=== PATIENT | female | born 1940 | race Caucasian/White ===

== ENCOUNTER → 2017-04-17 | Outpatient (CLI) | payer BC ==
[~2017-04-17] MED LIST: CALC500C50 PO; CEPH500C2 PO; FRS/80 PO; HYDR-4717 PO; KETO200T PO; LACT10SO30 PO; LEVO150T PO; LPT/40 PO; MAGN400T24 PO; MULT-506 PO; MYCO360T PO; NCY50 PO; NRL25 PO; OS CAL PO; POTA10TA30 PO; PRED-301 PO; RBX500 PO; TPRSR50 PO
--- NOTE | 2017-04-17 13:34 | DIAGNOSTIC IMAGING REPORT ---
R PELVIS/UNILATERAL HIP 2-3VIEWS HISTORY: 76 years-old Female PAIN IN R HIP/KNEE, UNSPECIFIED FALL acute right hip and knee pain status post fall COMPARISON: CT abdomen and pelvis 06/18/2009 TECHNIQUE: AP view of the pelvis with 2 views of the right hip FINDINGS: Unchanged sclerotic focus of the right iliac bone, 13 mm suggesting bone island. Additional bone island involves the right acetabulum, 11 mm. Bones appear moderately demineralized. There are moderate degenerative changes about the bilateral hips. No pelvic ring fracture. Severe degenerative changes with levoscoliosis of the lumbar spine. No acute fracture or subluxation. Peripheral vascular disease. Surgical suture material is noted within the central pelvis. IMPRESSION: 1. Moderate changes of the bilateral hips without acute fracture or dislocation. 2. No acute fracture of the pelvis identified. 3. Demineralized appearance of the bones. The above report was generated using voice recognition software. It may contain grammatical, syntax or spelling errors. Electronically signed by: Brian Kearney M.D. 04/17/2017 1:33 PM Dictated Date/Time: 04/17/2017 1:31 PM
--- NOTE | 2017-04-17 13:36 | DIAGNOSTIC IMAGING REPORT ---
RIGHT KNEE 2 VIEWS HISTORY: PAIN IN R HIP/KNEE, UNSPECIFIED FALL COMPARISON: None. FINDINGS: There is no fracture or dislocation. Mild vascular calcification. Small to moderate joint effusion. Mild osteoarthritis tricompartmental osteoarthritis. Subchondral sclerosis at the lateral femoral condyle is likely due to long-standing degenerative change. The bones are osteopenic. IMPRESSION: 1. Small to moderate joint effusion. 2. Mild tricompartmental osteoarthritis. 3. Subchondral sclerosis at the lateral femoral condyle is likely due to long-standing degenerative change. Electronically signed by: Agus Diamond M.D. 04/17/2017 1:35 PM Dictated Date/Time: 04/17/2017 1:31 PM
== END | disposition home or self-care (01) ==
LOC: C.RAD1850 13:08
PROVIDERS: ATTEND Family Medicine
DX: M25.552 Pain in left hip (principal); W19.XXXA Unspecified fall, initial encounter; M25.561 Pain in right knee; M25.551 Pain in right hip; M16.0 Bilateral primary osteoarthritis of hip; M25.451 Effusion, right hip

== ENCOUNTER → 2017-05-22 | Outpatient (CLI) | payer BC ==
[2017-05-22 13:07] LABS: BLOOD UREA NITROGEN 29 mg/dl (7-18); CALCIUM 9.1 mg/dl (8.5-10.1); CARBON DIOXIDE 28 mmol/L (21-32); CREATININE 1.51 mg/dl (0.60-1.20); GLUCOSE 90 mg/dl (70-99); POTASSIUM 3.8 mmol/L (3.5-5.1); SODIUM 139 mmol/L (136-145)
== END | disposition home or self-care (01) ==
LOC: C.LAB1850 10:05
PROVIDERS: ATTEND Internal Medicine Cardiovascular Disease

== ENCOUNTER → 2017-05-25 | Outpatient (CLI) | payer BC | END | disposition home or self-care (01) | LOC: C.LAB1850 14:22 | PROVIDERS: ATTEND Internal Medicine Cardiovascular Disease | DX: Z94.1 Heart transplant status (principal); Z92.25 Personal history of immunosuppression therapy ==

== ENCOUNTER → 2017-05-28 | Outpatient (CLI) | payer BC | END | disposition home or self-care (01) | LOC: C.MAMM 13:23 | PROVIDERS: ATTEND Student in an Organized Health Care Education/Training Program | DX: M85.89 Other specified disorders of bone density and structure, multiple sites (principal); Z79.52 Long term (current) use of systemic steroids; M81.0 Age-related osteoporosis without current pathological fracture ==

== ENCOUNTER → 2017-06-30 | Outpatient (CLI) | payer BC ==
--- NOTE | 2017-07-01 14:32 | DIAGNOSTIC IMAGING REPORT ---
THORACIC SPINE 2 VIEWS, LUMBAR SPINE MIN 4 VIEWS CLINICAL HISTORY: RIGHT KNEE AND BACK PAIN COMPARISON STUDY: Lumbar spine 08/04/2013. FINDINGS: The upper thoracic spine is not included on this study. No fracture or subluxation within the mid to lower thoracic spine or lumbar spine. Mild degenerative disc disease with endplate osteophytes are seen throughout the thoracic spine. There are poststernotomy changes. Moderate dextroscoliosis of the thoracolumbar spine with the apex at the L1 level. The sacrum appears intact. Moderate to severe disc space narrowing at L4-L5 and mild disc space narrowing at L2-L3 and L3-L4. Facet osteoarthritis most pronounced within the right L5-S1 level. IMPRESSION: 1. No fractures or subluxation within the thoracic or lumbar spine. 2. Moderate dextroscoliosis of the thoracolumbar spine. 3. Degenerative changes as described above. Electronically signed by: Agus Diamond M.D. 07/01/2017 2:31 PM Dictated Date/Time: 07/01/2017 2:26 PM
== END | disposition home or self-care (01) ==
LOC: C.RDSM 18:51
PROVIDERS: ATTEND Family Medicine
DX: M25.561 Pain in right knee (principal); M54.16 Radiculopathy, lumbar region; M81.0 Age-related osteoporosis without current pathological fracture; M41.9 Scoliosis, unspecified

== ENCOUNTER 2018-01-14 15:44 | Inpatient (IN) ==
[2018-01-14] MEDS ORDERED: XYLOCAINE 1%/SOD BICARB 20 ML VIAL INFIL ONE (15:58)
[2018-01-14 16:29] LABS: Basophils # (auto) 0.03 K/uL (0-0.2); Basophils % (auto) 0.5 %; Hematocrit (blood only) 37.3 % (37-47); Hemoglobin 11.8 g/dL (12.0-16.0); Immature Granulocytes # (auto) 0.01 K/uL (0.00-0.02); Immature Granulocytes % (auto) 0.2 %; Lymphocytes # (auto) 0.64 K/uL (1.2-3.4); Mean Corpuscular Hgb Conc 31.6 g/dL (32-36); Mean Corpuscular Volume 101.9 fL (80-100); Mean Platelet Volume 10.5 fL (7.4-10.4); Monocytes # (auto) 0.45 K/uL (0.11-0.59); Monocytes % (auto) 7.7 %; Neutrophils # (auto) 4.71 K/uL (1.4-6.5); Neutrophils % (auto) 80.6 %; Platelet Count 179 K/uL (130-400); RDW Coefficient of Variation 13.6 % (11.5-14.5); RDW Standard Deviation 50.7 fL (36.4-46.3); Red Blood Count 3.66 M/uL (4.2-5.4); White Blood Count 5.84 K/uL (4.8-10.8)
[2018-01-14 16:38] LABS: INR 1.1 (0.9-1.1); Partial Thromboplastin Time 25.2 Seconds (21.0-31.0); Prothrombin Time 11.7 Seconds (9.0-12.0)
[2018-01-14 16:38] LABS: iSTAT Hemoglobin 11.9 g/dl (12.0-16.0); iSTAT Ionized Calcium 1.1 mmol/l (1.12-1.32)
[2018-01-14 16:50] LABS: Albumin Level 3.6 gm/dl (3.4-5.0); BUN Creatinine Ratio 21.9 (10-20); Calcium 9.1 mg/dl (8.5-10.1); Creatinine Clr Calc Pharmacy 27.4 ml/min; Est GFR (African American) 34.6; Est GFR (Non-African American) 29.9; Potassium 3.9 mmol/L (3.5-5.1)
[2018-01-14] MEDS ORDERED: IOVERSOL 100ml IV PRN (16:50)
--- NOTE | 2018-01-14 16:54 | CT Scan Report ---
CT head/brain wo con CT DOSE: HISTORY: Trauma trauma eval for bleed TECHNIQUE: Multiaxial CT images of the head were performed without the use of intravenous contrast. A dose lowering technique was utilized adhering to the principles of ALARA. Comparison: None. Findings: The paranasal sinuses and mastoid air cells are clear. The calvarium and skull base are int act. The ventricles and sulci are within normal limits. There is no mass, hematoma, midline shift, or acute infarct. Age-related atrophy and chronic small vessel change. Impression: No acute intracranial abnormality. Age-related atrophy and chronic small vessel change The above report was generated using voice recognition software. It may contain grammatical, syntax or spelling errors. Electronically signed by: Janusz Martínez M.D. 01/14/2018 4:52 PM
--- NOTE | 2018-01-14 16:56 | CT Scan Report ---
CT facial bones wo con CT DOSE: HISTORY: Trauma trauma eval for fx TECHNIQUE: Multiaxial CT images of the maxillofacial region were performed and reformatted in the cor onal plane without the use of contrast. A dose lowering technique was utilized adhering to the princ iples of TAHIRA. COMPARISON: None. FINDINGS: The visualized cervical spine, skull base, pterygoid plates, nasal bones, lamina papyracea, orbital floors, mandible, and zygomatic arches are intact. No fractures. The orbits are unremarkable . IMPRESSION: No fractures within the maxillofacial region. Degenerative change The above report was generated using voice recognition software. It may contain grammatical, syntax or spelling errors. Electronically signed by: Janusz Martínez M.D. 01/14/2018 4:54 PM
--- NOTE | 2018-01-14 16:58 | CT Scan Report ---
CERVICAL SPINE CT CT DOSE: HISTORY: Neck pain. trauma eval for fx TECHNIQUE: Multiaxial CT images of the cervical spine were performed and reformatted in the sagittal and coronal plane without the use of contrast. A dose lowering technique was utilized adhering to th e principles of ALARA. COMPARISON: None. FINDINGS: No fractures. No subluxation. Prevertebral soft tissues and the C1-C2 interval are intact. No pneumothorax. Severe disc space narrowing at C4-C5. IMPRESSION: No fractures within the cervical spine. Electronically signed by: Agus Diamond M.D. 01/14/2018 4:56 PM
--- NOTE | 2018-01-14 16:59 | CT Scan Report ---
CT chest w con CT DOSE: HISTORY: Trauma trauma eval for injury TECHNIQUE: Multiaxial CT images of the chest were performed following the intravenous administration of contrast. A dose lowering technique was utilized adhering to the principles of ALARA. COMPARISON: None. FINDINGS: The lungs are clear. The mediastinal vascular structures are within normal limits. No media stinal or hilar lymphadenopathy. No pleural effusion or pneumothorax. Limited views of the upper abdo men demonstrate a normal liver and spleen. Prominent pulmonary vasculature consistent with pulmonary arterial hypertension. Normal thoracic aorta. IMPRESSION: No significant abnormality identified within the chest. Generalized degenerative and age-related romero ge. Pulmonary arterial hypertension. The above report was generated using voice recognition software. It may contain grammatical, syntax or spelling errors. Electronically signed by: Janusz Martínez M.D. 01/14/2018 4:58 PM
--- NOTE | 2018-01-14 17:02 | CT Scan Report ---
CT abd pelvis IV con only CT DOSE: 1678.15 mGy.cm HISTORY: Trauma trauma eval for injury TECHNIQUE: Multiaxial CT images of the abdomen and pelvis were performed following the use of intrave nous contrast. A dose lowering technique was utilized adhering to the principles of ALARA. COMPARISON STUDY: None. FINDINGS: Lung bases are clear. Liver is uniform. Prior cholecystectomy. Moderate cortical scarring o f both kidneys. Nonobstructive bowel pattern. Several small renal cysts. Ventral hernias procedure described. These are nonobstructive. Bladder is midline. No free fluid with in the pelvic cul-de-sac. IMPRESSION: No significant abnormality identified within the abdomen or pelvis. Age-related and degenerative romero ge. The above report was generated using voice recognition software. It may contain grammatical, syntax or spelling errors. Electronically signed by: Janusz Martínez M.D. 01/14/2018 5:01 PM
[2018-01-14] MEDS ORDERED: ACETAMINOPHEN 325 MG TAB PO STA (17:16)
[2018-01-14 17:20] LABS: Albumin Globulin Ratio 1.1 (0.9-2); Bilirubin,Total 1.8 mg/dl (0.1-1); Globulin 3.2 gm/dl (2.5-4.0); Total Protein 6.8 gm/dl (6.4-8.2); Troponin I 0.094 ng/ml (0-0.045)
--- NOTE | 2018-01-14 17:51 | XRay Report ---
XR tibia fibula LT 2V CLINICAL HISTORY: trauma eval for fx pain. Trauma. COMPARISON: None. DISCUSSION: Moderate generalized soft tissue edema. No acute bony abnormality. Mild degenerative romero ges throughout. Soft tissue vascular calcification. There is no evidence for soft tissue swelling. IMPRESSION: Generalized degenerative change. Moderate soft tissue edema. No acute bony abnormality. The above report was generated using voice recognition software. It may contain grammatical, syntax or spelling errors. Electronically signed by: Janusz Martínez M.D. 01/14/2018 5:50 PM
--- NOTE | 2018-01-14 17:52 | XRay Report ---
XR knee LT 2V routine CLINICAL HISTORY: trauma eval for fx trauma. Pain. COMPARISON: None. DISCUSSION: Moderate generalized degenerative change all major joint compartments. Mild chondrocalcin osis. No significant joint effusion. Soft tissue vascular calcification. There is no evidence for sof t tissue swelling. IMPRESSION: Degenerative change. Chondrocalcinosis. No acute bony abnormality. The above report was generated using voice recognition software. It may contain grammatical, syntax or spelling errors. Electronically signed by: Janusz Martínez M.D. 01/14/2018 5:50 PM
--- NOTE | 2018-01-14 17:53 | XRay Report ---
XR forearm LT 2V CLINICAL HISTORY: trauma eval for fx trauma COMPARISON: None. DISCUSSION: The bones and joint spaces appear intact. There is no evidence of fracture, dislocation o r bony disease. There is no evidence for soft tissue swelling. IMPRESSION: Negative study. The above report was generated using voice recognition software. It may contain grammatical, syntax or spelling errors. Electronically signed by: Janusz Martínez M.D. 01/14/2018 5:51 PM
--- NOTE | 2018-01-14 17:54 | XRay Report ---
XR knee RT 2V routine CLINICAL HISTORY: trauma eval for fx trauma. Pain. COMPARISON: None. DISCUSSION: Degenerative change lateral joint compartment. Mild degenerative change patellofemoral piyush int compartment. Mild soft tissue edema. No evidence for fracture or acute bony abnormality. There is no evidence for soft tissue swelling. IMPRESSION: Degenerative change. No acute bony and amount. The above report was generated using voice recognition software. It may contain grammatical, syntax or spelling errors. Electronically signed by: Janusz Martínez M.D. 01/14/2018 5:52 PM
--- NOTE | 2018-01-14 17:56 | XRay Report ---
XR forearm RT 2V CLINICAL HISTORY: trauma eval for fx trauma. Pain. COMPARISON: None. DISCUSSION: The bones and joint spaces appear intact. There is no evidence of fracture, dislocation o r bony disease. Moderate generalized soft tissue edema. Soft tissue vascular calcifications. IMPRESSION: No acute bony abnormality. Soft tissue edema. The above report was generated using voice recognition software. It may contain grammatical, syntax or spelling errors. Electronically signed by: Janusz Martínez M.D. 01/14/2018 5:54 PM
--- NOTE | 2018-01-14 17:57 | XRay Report ---
XR elbow RT min 3V routine CLINICAL HISTORY: trauma eval for fx trauma. Pain. COMPARISON: None. DISCUSSION: The bones and joint spaces appear intact. There is no evidence of fracture, dislocation o r bony disease. There is no evidence for soft tissue swelling. IMPRESSION: Negative study. Moderate soft tissue edema The above report was generated using voice recognition software. It may contain grammatical, syntax or spelling errors. Electronically signed by: Janusz Martínez M.D. 01/14/2018 5:56 PM
--- NOTE | 2018-01-14 18:01 | Emergency Department Note ---
ED Visit Note I was asked by Dr. Wolf to repair a right upper eyelid laceration and a skin tear on the left forearm for this patient. Verbal consent was obtained. The 6 cm U shaped skin tear was repaired approximately 6 Steri-Strips. Good approximation was obtained. Wound Repair: 1 cm facial laceration Complexity: Basic. Verbal consent was obtained after the risks and benefits were explained, including but not limited to bleeding, scarring, infection, pain, and bone/joint /nerve damage. The skin was prepped with betadine and a sterile field set. The wound was anesthetized with 1.0 ml of 1% buffered lidocaine. With direct pressure the bleeding subsided. Copious irrigation was performed using sterile saline. The wound was explored for foreign bodies and none found. Debridement was not performed. The wound edges were approximated using 6-0 Ethilon with 3 simple interrupted sutures. Hemostasis and excellent approximation was achieved. Antibacterial ointment and a sterile dressing applied. Detailed wound care instructions and signs and symptoms of infection reviewed with the patient. No complications and the patient tolerated the procedure well. Please see Dr. Wolf's note for the remainder patient care. .
--- NOTE | 2018-01-14 18:18 | XRay Report ---
XR pelvis 1-2V routine CLINICAL HISTORY: trauma eval for fx trauma COMPARISON: 04/17/2017 DISCUSSION: The bones and joint spaces appear intact. There is no evidence of fracture, dislocation o r bony disease. There is no evidence for soft tissue swelling. Moderate degenerative change. IMPRESSION: Negative study. Moderate degenerative change. The above report was generated using voice recognition software. It may contain grammatical, syntax or spelling errors. Electronically signed by: Janusz Martínez M.D. 01/14/2018 6:16 PM
[2018-01-14] MEDS ORDERED: NITROGLYCERIN SL 0.4 MG/TAB TAB SL PRN (21:06)
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
[2018-01-14 22:02] LABS: Magnesium 2.3 mg/dl (1.8-2.4); Phosphorus 3.4 mg/dl (2.5-4.9); Troponin I 0.097 ng/ml (0-0.045)
[2018-01-14] MEDS: ACETAMINOPHEN 325 MG TAB PO PRN (22:37)
[2018-01-14] MEDS: MYCOPHENOLATE SODIUM 180 MG TAB PO SCH (22:38)
[2018-01-14] MEDS: DOCUSATE SODIUM 100 MG CAP PO SCH (22:39)
[2018-01-14] MEDS: METOPROLOL SUCC 50MG EXT REL TAB PO SCH (22:39)
[2018-01-14] MEDS: HydrALAZINE TAB 50 MG TAB PO SCH (22:40)
[2018-01-14] MEDS: CHOLECALCIFEROL (VITAMIN D) 400 UNITS TABLET PO SCH (22:40)
[2018-01-14] MEDS: cycloSPORINE (SANDIMMUNE) 25 MG CAP PO SCH (22:41)
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
[2018-01-15] MEDS: ACETAMINOPHEN 325 MG TAB PO PRN ×4 (03:04→20:25)
[2018-01-15] MEDS: LEVOTHYROXINE SODIUM 112 MCG TABLET PO SCH (06:50)
[2018-01-15 07:14] LABS: Basophils # (auto) 0.04 K/uL (0-0.2); Basophils % (auto) 0.7 %; Eosinophils # (auto) 0.07 K/uL (0-0.5); Eosinophils % (auto) 1.1 %; Hematocrit (blood only) 32.6 % (37-47); Hemoglobin 10.2 g/dL (12.0-16.0); Immature Granulocytes # (auto) 0.01 K/uL (0.00-0.02); Immature Granulocytes % (auto) 0.2 %; Lymphocytes # (auto) 1.44 K/uL (1.2-3.4); Lymphocytes % (auto) 23.6 %; Mean Corpuscular Hgb Conc 31.3 g/dL (32-36); Mean Corpuscular Volume 102.2 fL (80-100); Mean Platelet Volume 10.3 fL (7.4-10.4); Monocytes # (auto) 0.98 K/uL (0.11-0.59); Monocytes % (auto) 16.1 %; Neutrophils # (auto) 3.55 K/uL (1.4-6.5); Neutrophils % (auto) 58.3 %; Platelet Count 168 K/uL (130-400); RDW Coefficient of Variation 13.5 % (11.5-14.5); RDW Standard Deviation 50.8 fL (36.4-46.3); Red Blood Count 3.19 M/uL (4.2-5.4); White Blood Count 6.09 K/uL (4.8-10.8)
[2018-01-15 07:47] LABS: BUN Creatinine Ratio 22.2 (10-20); Calcium 8.6 mg/dl (8.5-10.1); Creatinine Clr Calc Pharmacy 24.6 ml/min; Est GFR (African American) 33.4; Est GFR (Non-African American) 28.8; Potassium 3.5 mmol/L (3.5-5.1)
[2018-01-15 07:53] LABS: Troponin I 0.103 ng/ml (0-0.045)
[2018-01-15] MEDS: METOPROLOL SUCC 50MG EXT REL TAB PO SCH ×2 (08:20→20:23)
[2018-01-15] MEDS: predniSONE 5 MG TAB PO SCH (08:20)
[2018-01-15] MEDS: FUROSEMIDE 40 MG TAB PO SCH (08:20)
[2018-01-15] MEDS: DOCUSATE SODIUM 100 MG CAP PO SCH ×2 (08:20→20:21)
[2018-01-15] MEDS: CHOLECALCIFEROL (VITAMIN D) 400 UNITS TABLET PO SCH ×2 (08:20→20:23)
[2018-01-15] MEDS: ROSUVASTATIN CALCIUM 5 MG TAB PO SCH (08:20)
[2018-01-15] MEDS: HydrALAZINE TAB 50 MG TAB PO SCH ×3 (08:20→20:20)
[2018-01-15] MEDS: cycloSPORINE (SANDIMMUNE) 25 MG CAP PO SCH ×2 (08:21→20:22)
[2018-01-15] MEDS: MYCOPHENOLATE SODIUM 180 MG TAB PO SCH ×2 (08:21→20:21)
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
[2018-01-15 15:06] LABS: Hematocrit (blood only) 32.2 % (37-47); Hemoglobin 10.2 g/dL (12.0-16.0)
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
[2018-01-16] MEDS: LEVOTHYROXINE SODIUM 112 MCG TABLET PO SCH (06:03)
[2018-01-16 06:18] LABS: Basophils # (auto) 0.02 K/uL (0-0.2); Basophils % (auto) 0.3 %; Eosinophils % (auto) 1.4 %; Hematocrit (blood only) 29.4 % (37-47); Hemoglobin 9.5 g/dL (12.0-16.0); Immature Granulocytes # (auto) 0.01 K/uL (0.00-0.02); Immature Granulocytes % (auto) 0.1 %; Lymphocytes % (auto) 19.6 %; Mean Corpuscular Hgb Conc 32.3 g/dL (32-36); Mean Corpuscular Volume 100.7 fL (80-100); Mean Platelet Volume 10.5 fL (7.4-10.4); Monocytes # (auto) 1.06 K/uL (0.11-0.59); Monocytes % (auto) 14.8 %; Neutrophils # (auto) 4.57 K/uL (1.4-6.5); Neutrophils % (auto) 63.8 %; Platelet Count 162 K/uL (130-400); RDW Coefficient of Variation 13.7 % (11.5-14.5); Red Blood Count 2.92 M/uL (4.2-5.4); White Blood Count 7.16 K/uL (4.8-10.8)
[2018-01-16 06:51] LABS: Albumin Level 2.8 gm/dl (3.4-5.0); Bilirubin,Total 1.3 mg/dl (0.1-1); Calcium 8.4 mg/dl (8.5-10.1); Creatinine Clr Calc Pharmacy 23.1 ml/min; Est GFR (African American) 30.9; Est GFR (Non-African American) 26.7; Globulin 2.7 gm/dl (2.5-4.0); Potassium 3.5 mmol/L (3.5-5.1); Total Protein 5.5 gm/dl (6.4-8.2)
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
[2018-01-16] MEDS: ACETAMINOPHEN 325 MG TAB PO PRN ×3 (07:56→21:14)
[2018-01-16] MEDS: CHOLECALCIFEROL (VITAMIN D) 400 UNITS TABLET PO SCH ×2 (07:57→20:13)
[2018-01-16] MEDS: HydrALAZINE TAB 50 MG TAB PO SCH ×3 (07:57→20:12)
[2018-01-16] MEDS: METOPROLOL SUCC 50MG EXT REL TAB PO SCH ×2 (07:57→20:13)
[2018-01-16] MEDS: predniSONE 5 MG TAB PO SCH (07:57)
[2018-01-16] MEDS: DOCUSATE SODIUM 100 MG CAP PO SCH ×2 (07:58→20:12)
[2018-01-16] MEDS: FUROSEMIDE 40 MG TAB PO SCH (07:58)
[2018-01-16] MEDS: cycloSPORINE (SANDIMMUNE) 25 MG CAP PO SCH ×2 (07:58→20:13)
[2018-01-16] MEDS: ROSUVASTATIN CALCIUM 5 MG TAB PO SCH (07:58)
[2018-01-16] MEDS: MYCOPHENOLATE SODIUM 180 MG TAB PO SCH ×2 (07:58→20:13)
[2018-01-17] MEDS: LEVOTHYROXINE SODIUM 112 MCG TABLET PO SCH (05:06)
[2018-01-17 06:42] LABS: Basophils # (auto) 0.01 K/uL (0-0.2); Basophils % (auto) 0.2 %; Eosinophils % (auto) 1.6 %; Hematocrit (blood only) 29.3 % (37-47); Hemoglobin 9.2 g/dL (12.0-16.0); Immature Granulocytes # (auto) 0.01 K/uL (0.00-0.02); Immature Granulocytes % (auto) 0.2 %; Lymphocytes # (auto) 1.49 K/uL (1.2-3.4); Lymphocytes % (auto) 23.1 %; Mean Corpuscular Hgb Conc 31.4 g/dL (32-36); Mean Platelet Volume 10.6 fL (7.4-10.4); Monocytes # (auto) 0.89 K/uL (0.11-0.59); Monocytes % (auto) 13.8 %; Neutrophils # (auto) 3.95 K/uL (1.4-6.5); Neutrophils % (auto) 61.1 %; Platelet Count 167 K/uL (130-400); RDW Coefficient of Variation 13.9 % (11.5-14.5); RDW Standard Deviation 51.2 fL (36.4-46.3); White Blood Count 6.45 K/uL (4.8-10.8)
[2018-01-17 07:18] LABS: Albumin Level 2.8 gm/dl (3.4-5.0); BUN Creatinine Ratio 21.7 (10-20); Calcium 8.3 mg/dl (8.5-10.1); Creatinine Clr Calc Pharmacy 20.9 ml/min; Est GFR (Non-African American) 21.6; Potassium 3.3 mmol/L (3.5-5.1)
[2018-01-17 07:20] LABS: Bilirubin,Total 1.2 mg/dl (0.1-1); Globulin 2.7 gm/dl (2.5-4.0); Total Protein 5.5 gm/dl (6.4-8.2)
[2018-01-17] MEDS: ACETAMINOPHEN 325 MG TAB PO PRN ×4 (07:59→23:19)
[2018-01-17] MEDS: cycloSPORINE (SANDIMMUNE) 25 MG CAP PO SCH ×2 (08:00→20:59)
[2018-01-17] MEDS: ROSUVASTATIN CALCIUM 5 MG TAB PO SCH (08:00)
[2018-01-17] MEDS: MYCOPHENOLATE SODIUM 180 MG TAB PO SCH ×2 (08:00→20:59)
[2018-01-17] MEDS: predniSONE 5 MG TAB PO SCH (08:00)
[2018-01-17] MEDS: DOCUSATE SODIUM 100 MG CAP PO SCH ×2 (08:00→20:58)
[2018-01-17] MEDS: FUROSEMIDE 40 MG TAB PO SCH (08:00)
[2018-01-17] MEDS: METOPROLOL SUCC 50MG EXT REL TAB PO SCH ×2 (08:00→20:58)
[2018-01-17] MEDS: CHOLECALCIFEROL (VITAMIN D) 400 UNITS TABLET PO SCH ×2 (08:00→20:58)
[2018-01-17] MEDS: HydrALAZINE TAB 50 MG TAB PO SCH ×3 (08:01→20:59)
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
[2018-01-17] MEDS ORDERED: POTASSIUM CHLORIDE 20 MEQ TABCR PO ONE (11:00)
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
[2018-01-17] MEDS ORDERED: TRAMADOL HCL 50 MG TABLET PO STA (21:08)
[2018-01-18] MEDS: LEVOTHYROXINE SODIUM 112 MCG TABLET PO SCH (06:10)
[2018-01-18 07:25] LABS: Basophils # (auto) 0.02 K/uL (0-0.2); Basophils % (auto) 0.3 %; Eosinophils # (auto) 0.09 K/uL (0-0.5); Eosinophils % (auto) 1.5 %; Hematocrit (blood only) 27.6 % (37-47); Hemoglobin 8.7 g/dL (12.0-16.0); Immature Granulocytes # (auto) 0.01 K/uL (0.00-0.02); Immature Granulocytes % (auto) 0.2 %; Lymphocytes # (auto) 1.25 K/uL (1.2-3.4); Lymphocytes % (auto) 20.3 %; Mean Corpuscular Hgb Conc 31.5 g/dL (32-36); Mean Corpuscular Volume 101.1 fL (80-100); Mean Platelet Volume 10.7 fL (7.4-10.4); Monocytes # (auto) 0.96 K/uL (0.11-0.59); Monocytes % (auto) 15.6 %; Neutrophils # (auto) 3.83 K/uL (1.4-6.5); Neutrophils % (auto) 62.1 %; Platelet Count 162 K/uL (130-400); RDW Coefficient of Variation 14.1 % (11.5-14.5); Red Blood Count 2.73 M/uL (4.2-5.4); White Blood Count 6.16 K/uL (4.8-10.8)
[2018-01-18 07:56] LABS: RBC Morphology Unremarkable
[2018-01-18 08:06] LABS: Albumin Level 2.7 gm/dl (3.4-5.0); BUN Creatinine Ratio 22.7 (10-20); Calcium 8.3 mg/dl (8.5-10.1); Creatinine Clr Calc Pharmacy 20.6 ml/min; Est GFR (African American) 24.3; Potassium 3.6 mmol/L (3.5-5.1)
[2018-01-18 08:08] LABS: Albumin Globulin Ratio 1.1 (0.9-2); Bilirubin,Total 1.3 mg/dl (0.1-1); Globulin 2.6 gm/dl (2.5-4.0); Total Protein 5.3 gm/dl (6.4-8.2)
[2018-01-18] MEDS: FUROSEMIDE 40 MG TAB PO SCH (08:09)
[2018-01-18] MEDS: CHOLECALCIFEROL (VITAMIN D) 400 UNITS TABLET PO SCH ×2 (08:09→20:12)
[2018-01-18] MEDS: METOPROLOL SUCC 50MG EXT REL TAB PO SCH ×2 (08:09→20:12)
[2018-01-18] MEDS: predniSONE 5 MG TAB PO SCH (08:09)
[2018-01-18] MEDS: DOCUSATE SODIUM 100 MG CAP PO SCH ×2 (08:10→20:12)
[2018-01-18] MEDS: MYCOPHENOLATE SODIUM 180 MG TAB PO SCH ×2 (08:10→20:11)
[2018-01-18] MEDS: cycloSPORINE (SANDIMMUNE) 25 MG CAP PO SCH ×2 (08:11→21:47)
[2018-01-18] MEDS: ROSUVASTATIN CALCIUM 5 MG TAB PO SCH (08:11)
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
[2018-01-18] MEDS: HydrALAZINE TAB 50 MG TAB PO SCH ×3 (09:55→20:11)
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
[2018-01-18] MEDS ORDERED: SODIUM CHLORIDE 0.9% 1000ML 500 ML IV ONE (11:24)
[2018-01-18] MEDS: ACETAMINOPHEN 325 MG TAB PO PRN ×4 (11:35→23:41)
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
[2018-01-19] MEDS: LEVOTHYROXINE SODIUM 112 MCG TABLET PO SCH (05:21)
[2018-01-19] MEDS: ACETAMINOPHEN 325 MG TAB PO PRN ×3 (05:21→20:40)
[2018-01-19] MEDS ORDERED: TRAMADOL HCL 50 MG TABLET PO STA ×2 (05:38→09:13)
[2018-01-19 05:54] LABS: Basophils # (auto) 0.03 K/uL (0-0.2); Basophils % (auto) 0.5 %; Eosinophils # (auto) 0.11 K/uL (0-0.5); Eosinophils % (auto) 1.7 %; Hematocrit (blood only) 28.7 % (37-47); Immature Granulocytes # (auto) 0.01 K/uL (0.00-0.02); Immature Granulocytes % (auto) 0.2 %; Lymphocytes # (auto) 1.42 K/uL (1.2-3.4); Lymphocytes % (auto) 22.4 %; Mean Corpuscular Hgb Conc 31.4 g/dL (32-36); Mean Corpuscular Volume 101.1 fL (80-100); Mean Platelet Volume 10.6 fL (7.4-10.4); Monocytes # (auto) 0.91 K/uL (0.11-0.59); Monocytes % (auto) 14.4 %; Neutrophils # (auto) 3.86 K/uL (1.4-6.5); Neutrophils % (auto) 60.8 %; Platelet Count 189 K/uL (130-400); RDW Coefficient of Variation 13.9 % (11.5-14.5); RDW Standard Deviation 51.2 fL (36.4-46.3); Red Blood Count 2.84 M/uL (4.2-5.4); White Blood Count 6.34 K/uL (4.8-10.8)
[2018-01-19 06:26] LABS: Albumin Level 2.8 gm/dl (3.4-5.0); BUN Creatinine Ratio 24.5 (10-20); Calcium 8.1 mg/dl (8.5-10.1); Creatinine Clr Calc Pharmacy 22.4 ml/min; Est GFR (African American) 26.8; Est GFR (Non-African American) 23.2; Potassium 3.5 mmol/L (3.5-5.1)
[2018-01-19 06:28] LABS: Bilirubin,Total 1.2 mg/dl (0.1-1); Globulin 2.9 gm/dl (2.5-4.0); Total Protein 5.7 gm/dl (6.4-8.2)
[2018-01-19] MEDS: METOPROLOL SUCC 50MG EXT REL TAB PO SCH ×2 (08:04→20:48)
[2018-01-19] MEDS: CHOLECALCIFEROL (VITAMIN D) 400 UNITS TABLET PO SCH ×2 (08:10→20:48)
[2018-01-19] MEDS: ROSUVASTATIN CALCIUM 5 MG TAB PO SCH (08:10)
[2018-01-19] MEDS: MYCOPHENOLATE SODIUM 180 MG TAB PO SCH ×2 (08:10→20:48)
[2018-01-19] MEDS: predniSONE 5 MG TAB PO SCH (08:10)
[2018-01-19] MEDS: HydrALAZINE TAB 50 MG TAB PO SCH ×3 (08:10→20:47)
[2018-01-19] MEDS: DOCUSATE SODIUM 100 MG CAP PO SCH ×2 (08:10→20:50)
[2018-01-19] MEDS: FUROSEMIDE 40 MG TAB PO SCH (08:10)
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
[2018-01-19] MEDS ORDERED: TRAMADOL HCL 50 MG TABLET ONE (09:36)
[2018-01-19] MEDS: cycloSPORINE (SANDIMMUNE) 25 MG CAP PO SCH ×2 (09:38→20:48)
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
[2018-01-20] MEDS: ACETAMINOPHEN 325 MG TAB PO PRN ×3 (00:48→20:14)
[2018-01-20] MEDS ORDERED: TRAMADOL HCL 50 MG TABLET PO STA (01:33)
[2018-01-20 05:59] LABS: Basophils # (auto) 0.02 K/uL (0-0.2); Basophils % (auto) 0.3 %; Eosinophils % (auto) 1.7 %; Hematocrit (blood only) 28.1 % (37-47); Hemoglobin 8.9 g/dL (12.0-16.0); Immature Granulocytes # (auto) 0.02 K/uL (0.00-0.02); Immature Granulocytes % (auto) 0.3 %; Lymphocytes # (auto) 1.21 K/uL (1.2-3.4); Lymphocytes % (auto) 20.8 %; Mean Corpuscular Hgb Conc 31.7 g/dL (32-36); Mean Corpuscular Volume 101.8 fL (80-100); Mean Platelet Volume 10.2 fL (7.4-10.4); Monocytes % (auto) 13.7 %; Neutrophils # (auto) 3.67 K/uL (1.4-6.5); Neutrophils % (auto) 63.2 %; Platelet Count 190 K/uL (130-400); RDW Coefficient of Variation 14.1 % (11.5-14.5); RDW Standard Deviation 51.3 fL (36.4-46.3); Red Blood Count 2.76 M/uL (4.2-5.4); White Blood Count 5.82 K/uL (4.8-10.8)
[2018-01-20] MEDS: LEVOTHYROXINE SODIUM 112 MCG TABLET PO SCH (06:10)
[2018-01-20 06:28] LABS: Albumin Level 2.7 gm/dl (3.4-5.0); BUN Creatinine Ratio 25.4 (10-20); Calcium 8.4 mg/dl (8.5-10.1); Creatinine Clr Calc Pharmacy 25.3 ml/min; Est GFR (African American) 31.1; Est GFR (Non-African American) 26.8
[2018-01-20 06:31] LABS: Albumin Globulin Ratio 0.9 (0.9-2); Bilirubin,Total 1.2 mg/dl (0.1-1); Globulin 2.9 gm/dl (2.5-4.0); RBC Morphology Unremarkable; Total Protein 5.6 gm/dl (6.4-8.2)
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
[2018-01-20] MEDS: METOPROLOL SUCC 50MG EXT REL TAB PO SCH ×2 (08:14→20:15)
[2018-01-20] MEDS: CHOLECALCIFEROL (VITAMIN D) 400 UNITS TABLET PO SCH ×2 (08:14→20:15)
[2018-01-20] MEDS: predniSONE 5 MG TAB PO SCH (08:14)
[2018-01-20] MEDS: ROSUVASTATIN CALCIUM 5 MG TAB PO SCH (08:14)
[2018-01-20] MEDS: HydrALAZINE TAB 50 MG TAB PO SCH ×3 (08:14→20:14)
[2018-01-20] MEDS: FUROSEMIDE 40 MG TAB PO SCH (08:14)
[2018-01-20] MEDS: cycloSPORINE (SANDIMMUNE) 25 MG CAP PO SCH ×2 (08:15→20:15)
[2018-01-20] MEDS: MYCOPHENOLATE SODIUM 180 MG TAB PO SCH ×2 (08:15→20:14)
[2018-01-20] MEDS: TRAMADOL HCL 50 MG TABLET PO PRN ×2 (08:38→12:38)
[2018-01-20] MEDS: DOCUSATE SODIUM 100 MG CAP PO SCH ×2 (09:52→20:15)
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
[2018-01-21] MEDS: ACETAMINOPHEN 325 MG TAB PO PRN (06:24)
[2018-01-21] MEDS: LEVOTHYROXINE SODIUM 112 MCG TABLET PO SCH (06:24)
[2018-01-21 06:44] LABS: BUN Creatinine Ratio 28.2 (10-20); Calcium 8.2 mg/dl (8.5-10.1); Creatinine Clr Calc Pharmacy 27.5 ml/min; Est GFR (African American) 34.4; Est GFR (Non-African American) 29.7; Potassium 4.1 mmol/L (3.5-5.1)
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
[2018-01-21] MEDS: DOCUSATE SODIUM 100 MG CAP PO SCH (08:16)
[2018-01-21] MEDS: MYCOPHENOLATE SODIUM 180 MG TAB PO SCH (08:16)
[2018-01-21] MEDS: cycloSPORINE (SANDIMMUNE) 25 MG CAP PO SCH (08:16)
[2018-01-21] MEDS: METOPROLOL SUCC 50MG EXT REL TAB PO SCH (08:17)
[2018-01-21] MEDS: CHOLECALCIFEROL (VITAMIN D) 400 UNITS TABLET PO SCH (08:17)
[2018-01-21] MEDS: ROSUVASTATIN CALCIUM 5 MG TAB PO SCH (08:17)
[2018-01-21] MEDS: FUROSEMIDE 40 MG TAB PO SCH (08:18)
[2018-01-21] MEDS: predniSONE 5 MG TAB PO SCH (08:18)
[2018-01-21] MEDS: HydrALAZINE TAB 50 MG TAB PO SCH (08:18)
== END 2018-01-21 13:50 | disposition home health service (06) | DRG 605 ==
LOC: ED 15:44 → SUATTDRO 20:01 → 2S 20:01 → 2N 01-18 12:38

== ENCOUNTER 2018-02-21 09:30 | Observation (INO) ==
[2018-02-21 09:48] LABS: Basophils # (auto) 0.02 K/uL (0-0.2); Basophils % (auto) 0.3 %; Eosinophils # (auto) 0.06 K/uL (0-0.5); Eosinophils % (auto) 0.9 %; Hematocrit (blood only) 35.9 % (37-47); Hemoglobin 11.4 g/dL (12.0-16.0); Immature Granulocytes # (auto) 0.01 K/uL (0.00-0.02); Immature Granulocytes % (auto) 0.2 %; Lymphocytes # (auto) 1.56 K/uL (1.2-3.4); Mean Corpuscular Hgb Conc 31.8 g/dL (32-36); Mean Corpuscular Volume 103.8 fL (80-100); Mean Platelet Volume 10.6 fL (7.4-10.4); Monocytes # (auto) 0.81 K/uL (0.11-0.59); Monocytes % (auto) 12.4 %; Neutrophils # (auto) 4.05 K/uL (1.4-6.5); Neutrophils % (auto) 62.2 %; Platelet Count 219 K/uL (130-400); RDW Coefficient of Variation 14.5 % (11.5-14.5); RDW Standard Deviation 54.9 fL (36.4-46.3); Red Blood Count 3.46 M/uL (4.2-5.4); White Blood Count 6.51 K/uL (4.8-10.8)
--- NOTE | 2018-02-21 09:58 | XRay Report ---
XR chest 1V portable CLINICAL HISTORY: Chest pain. COMPARISON STUDY: Chest CT January 14, 2018. FINDINGS: Incidental note is made of mediastinal wires and a right shoulder arthroplasty. There is no pneumothorax. Note is made of pulmonary vascular congestion without overt pulmonary edema. Blunting of the left costophrenic angle is unchanged. There is no consolidation. Cardiomegaly is unchanged. No ndisplaced fractures of the lateral right sixth and seventh ribs are noted. IMPRESSION: 1. Cardiomegaly with pulmonary vascular congestion. No overt pulmonary edema. 2. No consolidation to suggest pneumonia. 3. Nondisplaced right sixth and seventh rib fractures which are likely subacute to chronic. Electronically signed by: Guru Quinn M.D. 02/21/2018 9:56 AM
[2018-02-21 10:04] LABS: Albumin Level 3.4 gm/dl (3.4-5.0); BUN Creatinine Ratio 24.5 (10-20); Calcium 8.7 mg/dl (8.5-10.1); Creatinine Clr Calc Pharmacy 26.9 ml/min; Est GFR (African American) 33.6; Magnesium 2.1 mg/dl (1.8-2.4); Potassium 3.1 mmol/L (3.5-5.1)
[2018-02-21 10:14] LABS: Albumin Globulin Ratio 1.1 (0.9-2); Bilirubin,Total 1.4 mg/dl (0.2-1); Globulin 3.2 gm/dl (2.5-4.0); Phosphorus 3.2 mg/dl (2.5-4.9); Total Protein 6.6 gm/dl (6.4-8.2); Troponin I 0.097 ng/ml (0-0.045)
[2018-02-21] MEDS ORDERED: POTASSIUM CHLORIDE 20 MEQ TABCR PO STA (10:20)
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
[2018-02-21 11:08] LABS: INR 1.2 (0.9-1.1); Prothrombin Time 12.2 Seconds (9.0-12.0)
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
[2018-02-21] MEDS ORDERED: ONDANSETRON INJ 2 MG/ML 2 ML VIAL IV PRN (12:01)
[2018-02-21] MEDS ORDERED: NITROGLYCERIN SL 0.4 MG/TAB TAB SL PRN (12:01)
[2018-02-21] MEDS ORDERED: POTASSIUM CHLORIDE 10 MEQ / 100ML WTR IV STA (12:01)
[2018-02-21] MEDS ORDERED: MAGNESIUM OXIDE 400 MG TAB PO PRN (12:01)
[2018-02-21] MEDS: POTASSIUM CHLORIDE / WTR 10 MEQ/100 ML PLCT IV SCH ×3 (12:59→16:14)
[2018-02-21] MEDS: POTASSIUM CHLORIDE 20 MEQ TABCR PO SCH (16:14)
[2018-02-21] MEDS: cycloSPORINE 25 MG CAP PO SCH (20:30)
[2018-02-21] MEDS: APIXABAN 5 MG TABLET PO SCH (20:30)
[2018-02-21] MEDS: HydrALAZINE TAB 50 MG TAB PO SCH (20:31)
[2018-02-21] MEDS: MYCOPHENOLATE SODIUM 180 MG TAB PO SCH (20:32)
[2018-02-21] MEDS: METOPROLOL SUCC 50MG EXT REL TAB PO SCH (20:33)
[2018-02-21] MEDS: ROSUVASTATIN CALCIUM 5 MG TAB PO SCH (20:33)
[2018-02-21] MEDS: CHOLECALCIFEROL (VITAMIN D) 400 UNITS TABLET PO SCH (20:34)
[2018-02-21] MEDS: ACETAMINOPHEN 325 MG TAB PO PRN (22:06)
[2018-02-22 04:39] LABS: Hematocrit (blood only) 34.6 % (37-47); Hemoglobin 10.9 g/dL (12.0-16.0); Mean Corpuscular Hgb Conc 31.5 g/dL (32-36); Mean Corpuscular Volume 104.2 fL (80-100); Mean Platelet Volume 10.4 fL (7.4-10.4); Platelet Count 189 K/uL (130-400); RDW Coefficient of Variation 14.4 % (11.5-14.5); RDW Standard Deviation 54.5 fL (36.4-46.3); Red Blood Count 3.32 M/uL (4.2-5.4); White Blood Count 5.71 K/uL (4.8-10.8)
[2018-02-22 05:24] LABS: Calcium 8.4 mg/dl (8.5-10.1); Creatinine Clr Calc Pharmacy 31.3 ml/min; Est GFR (African American) 40.3; Est GFR (Non-African American) 34.7; Potassium 4.2 mmol/L (3.5-5.1); Troponin I 0.109 ng/ml (0-0.045)
[2018-02-22] MEDS: LEVOTHYROXINE SODIUM 112 MCG TABLET PO SCH (07:49)
[2018-02-22] MEDS: POTASSIUM CHLORIDE 20 MEQ TABCR PO SCH ×2 (09:17→18:23)
[2018-02-22] MEDS: cycloSPORINE 25 MG CAP PO SCH ×2 (09:18→20:56)
[2018-02-22] MEDS: ALLOPURINOL 100 MG TAB PO SCH (09:19)
[2018-02-22] MEDS: CHOLECALCIFEROL (VITAMIN D) 400 UNITS TABLET PO SCH ×2 (09:19→20:56)
[2018-02-22] MEDS: ASPIRIN 81 MG ECTAB PO SCH (09:19)
[2018-02-22] MEDS: ASCORBIC ACID 500 MG TAB PO SCH (09:19)
[2018-02-22] MEDS: CALCIUM POLYCARBOPHIL 1 TAB PO SCH (09:20)
[2018-02-22] MEDS: CALCIUM CARBONATE 500 MG CHEWABLE TAB PO SCH (09:20)
[2018-02-22] MEDS: MULTIVITAMIN TAB PO SCH (09:20)
[2018-02-22] MEDS: APIXABAN 5 MG TABLET PO SCH ×2 (09:21→20:57)
[2018-02-22] MEDS: MYCOPHENOLATE SODIUM 180 MG TAB PO SCH ×2 (09:21→20:57)
[2018-02-22] MEDS: predniSONE 5 MG TAB PO SCH (09:22)
--- NOTE | 2018-02-22 09:59 | Cardiology Progress Note ---
Date of Service February 22, 2018 Assessment & Plan (1) Elevated troponin: The patient has a chronically elevated troponin I level. Doubt this represents myocardial ischemia no further workup indicated at this time. (2) Atypical chest pain: The patient experienced significant right shoulder pain at the time of her presentation. Could consider CT scan of the chest to rule out a pulmonary embolism realizing her recently diagnosed right lower extremity DVT. (3) DVT (deep venous thrombosis): Right lower extremity DVT identified last week. Now back on long-term anticoagulation. (4) Status post heart transplant: Her procedure was performed at [facility] back in 1999. Subjective Mrs. Carmen is resting comfortably in bed without complaints of chest pain or dyspnea. Physical Exam 2 Vital Signs (Past 24 Hours): Last Vital Signs Temp 36.6 C 02/22/18 07:22 Pulse 88 02/22/18 07:22 Resp 16 02/22/18 07:22 BP 121/73 02/22/18 07:22 Pulse Ox 97 02/22/18 07:22 Physical Exam: In general is well-developed well-nourished white female no acute distress. HEENT exam notes an ecchymosis across the right face. Neck is supple with full carotid upstrokes. No carotid bruits. Jugular venous pressure is flat at 90. No thyromegaly. Cardiovascular exam reveals a regular rhythm with distant heart sounds. No obvious murmurs. Lungs are clear without rales, rhonchi or wheezes. Abdomen is soft without bruits extremities reveal intact radial artery pulses bilaterally. Right upper extremity is edematous and ecchymotic. Trace pretibial edema. Results & Data Laboratory Results CBC notes a hemoglobin of 10.9, hematocrit 34.6, white count 5.7, platelet count [id number]. Electrolytes show sodium 143, potassium 4.2, chloride 110, bicarb 29, BUN 36, creatinine 1.43, glucose 93. Initial troponin was 0.0 9 7 with fall values of 0.1 and 0.109. Diagnostic Findings lace roller notes sinus rhythm.
[2018-02-22] MEDS: METOPROLOL SUCC 50MG EXT REL TAB PO SCH ×2 (11:27→20:55)
[2018-02-22] MEDS: HydrALAZINE TAB 50 MG TAB PO SCH ×2 (11:27→20:58)
--- NOTE | 2018-02-22 14:46 | Nuclear Medicine Report ---
NM pul vent and perfuse CLINICAL HISTORY: 77 years-old Female presenting with shoulder pain, history of heart transplant, r/o PE. TECHNIQUE: Immediately following the inhalation of 33 mCi of technetium 99 M DTPA for the ventilation scan and the intravenous administration of 5 mCi of technetium 99 M MAA for the perfusion scan, ante rior, oblique, lateral, and posterior views of the chest were obtained. Modified PIOPED II criteria w ere utilized for assessment. COMPARISON: Chest x-ray performed the previous day. FINDINGS: 2 large mismatch defects in the anterior and apical segments of the left upper lobe. Ventilation to t hese regions is preserved. There is heterogeneity of both ventilation and perfusion in the left perih ilar region. The remainder of the lung parenchyma demonstrates normal perfusion. Slight heterogeneity of ventilation likely due to central airway deposition. Incidental note made of ingested radiotracer in the gastric lumen. Reference: Modified PIOPED II criteria Normal: No perfusion defects. Very low likelihood ratio: Nonsegmental, perfusion defect < chest x-ray lesion, 1-3 small segmental d efects, solitary triple matched defect (< or = 1 segment) in mid or upper lung, stripe sign, solitary large pleural effusion, > or = to 2 matched defects with regionally normal chest x-ray. High likelihood ratio: > or = 2 large mismatch segmental defects. Nondiagnostic: All other findings. IMPRESSION: High likelihood for pulmonary embolus. The report will be called/faxed according to standard departmental protocol. Electronically signed by: Iain Davis M.D. 02/22/2018 2:44 PM
--- NOTE | 2018-02-22 15:22 | Hospitalist Progress Note ---
Date of Service February 22, 2018 Assessment & Plan (1) Heart transplanted: (2) Hypothyroidism: (3) Chronic steroid use: (4) Hypertension: (5) Elevated troponin: (6) DVT prophylaxis: (7) Abnormal urinalysis: (8) Hypokalemia: (9) CKD (chronic kidney disease) stage 3, GFR 30-59 ml/min: 77-year-old white female admitted on February 21, 2017 because of shoulder pain, possible chest pain equivocal with history of heart transplanted with chronic elevated troponin, Cardiology saw the patient, possible no cardiac conditions, does not need further cardiac evaluation, however need to check CT or lung scan to rule out PE , lung scan was done, shows high possibility of PE, recently dx of DVT which is nearly occlusive deep venous thrombosis identified within 1 of 2 paired distal superficial femoral veins. Patient has been on Eliquis, will continue, will increase activity PTOT, not discharged home 10-day Mild elevated blood pressure at 152/92, will watch, Hypothyroidism, chronic steroid use, continue levothyroxine 112 mcg, continue prednisone Accelerated hypertension: Continue metoprolol hydralazine and Lasix Hypokalemia upon admission resolved CKD stage 3, in Baseline, Continue current care, increase activity, PT OT, possible discharge home tomorrow Subjective No more shoulder pain, however not out of bed to the chair yet, denies hemoptysis denies chest pain, Review of Systems Constitutional: Positive weakness, or fatigue Respiratory: no cough, sputum, wheezing, Cardiac: No chest pain, No orthopnea, No PND, Abdomen: No pain, No nausea, No vomiting, No diarrhea, Musculoskeletal: No joint pain, No muscle pain, No swelling : No dysuria, No urinary frequency, No incontinence, No hematuria Neurologic: No paralysis, No weakness, No numbness/tingling, Psychiatric: No depression symptoms, No anhedonism, No anxiety, Heme: No abnormal bleeding/bruising, No clotting problems, Skin: No rash, No itch, No new/changing skin lesions, Physical Exam 2 Vital Signs (Past 24 Hours): Last Vital Signs Temp 36.6 C 02/22/18 11:45 Pulse 88 02/22/18 11:45 Resp 20 02/22/18 11:45 BP 150/92 H 02/22/18 11:45 Pulse Ox 93 02/22/18 11:45 Physical Exam: General Appearance: WD/WN, no apparent distress, Eyes: normal inspection, PERRL, EOMI, sclerae normal ENT: normal ENT inspection, hearing grossly normal, pharynx normal Neck: supple, no adenopathy, thyroid normal, no JVD, Respiratory/Chest: chest non-tender,no respiratory distress, no accessory muscle use, no rales, wheezing Cardiovascular: Mild decreased breathing sound, regular rate, rhythm, no JVD, no murmur Abdomen: normal bowel sounds, non tender, soft, no organomegaly, Extremities: normal range of motion, non-tender, normal inspection, no pedal edema, no calf tenderness, normal capillary refill , pelvis stable, joint has no limited range of motion, capillary refill is normal, no cyanosis clubbing Neurologic/Psychiatric: second butler II-XII nml as tested, no motor/sensory deficits, alert, normal mood/affect, oriented x 3 Skin: normal color, warm/dry, no rash Lymphatic: no adenopathy Results & Data Laboratory Results Laboratory Results - last 24 hr 02/21/18 02/22/18 02/22/18 16:42 04:19 04:19 WBC 5.71 RBC 3.32 L Hgb 10.9 L Hct 34.6 L MCV 104.2 H MCH 32.8 MCHC 31.5 L RDW Std Deviation 54.5 H RDW Coeff of Jeniffer 14.4 Plt Count 189 MPV 10.4 Sodium 143 Potassium 4.2 D Chloride 110 H Carbon Dioxide 29 Anion Gap 4.0 BUN 36 H Creatinine 1.43 H Est Cr Clr Drug Dosing 31.3 Est GFR ( Amer) 40.3 Est GFR (Non-Af Amer) 34.7 BUN/Creatinine Ratio 25.0 H Glucose 93 Calcium 8.4 L Troponin I 0.100 H* 0.109 H*
[2018-02-22] MEDS: ROSUVASTATIN CALCIUM 5 MG TAB PO SCH (20:58)
[2018-02-22] MEDS: ACETAMINOPHEN 325 MG TAB PO PRN (21:01)
[2018-02-23] MEDS: LEVOTHYROXINE SODIUM 112 MCG TABLET PO SCH (06:35)
[2018-02-23 06:45] LABS: Hematocrit (blood only) 35.5 % (37-47); Hemoglobin 10.8 g/dL (12.0-16.0); Mean Corpuscular Hgb Conc 30.4 g/dL (32-36); Mean Corpuscular Volume 104.4 fL (80-100); Mean Platelet Volume 10.4 fL (7.4-10.4); Platelet Count 197 K/uL (130-400); RDW Coefficient of Variation 14.6 % (11.5-14.5); RDW Standard Deviation 55.7 fL (36.4-46.3); White Blood Count 6.07 K/uL (4.8-10.8)
[2018-02-23 07:17] LABS: BUN Creatinine Ratio 23.6 (10-20); Calcium 8.5 mg/dl (8.5-10.1); Creatinine Clr Calc Pharmacy 32.6 ml/min; Est GFR (African American) 46.9; Est GFR (Non-African American) 40.5; Potassium 4.3 mmol/L (3.5-5.1)
[2018-02-23] MEDS: MYCOPHENOLATE SODIUM 180 MG TAB PO SCH (09:12)
[2018-02-23] MEDS: CALCIUM POLYCARBOPHIL 1 TAB PO SCH (09:12)
[2018-02-23] MEDS: CALCIUM CARBONATE 500 MG CHEWABLE TAB PO SCH (09:13)
[2018-02-23] MEDS: ASPIRIN 81 MG ECTAB PO SCH (09:13)
[2018-02-23] MEDS: HydrALAZINE TAB 50 MG TAB PO SCH (09:14)
[2018-02-23] MEDS: ASCORBIC ACID 500 MG TAB PO SCH (09:14)
[2018-02-23] MEDS: POTASSIUM CHLORIDE 20 MEQ TABCR PO SCH (09:14)
[2018-02-23] MEDS: APIXABAN 5 MG TABLET PO SCH (09:14)
[2018-02-23] MEDS: cycloSPORINE 25 MG CAP PO SCH (09:16)
[2018-02-23] MEDS: MULTIVITAMIN TAB PO SCH (09:16)
[2018-02-23] MEDS: predniSONE 5 MG TAB PO SCH (09:16)
[2018-02-23] MEDS: CHOLECALCIFEROL (VITAMIN D) 400 UNITS TABLET PO SCH (09:16)
[2018-02-23] MEDS: METOPROLOL SUCC 50MG EXT REL TAB PO SCH (09:17)
[2018-02-23] MEDS: ALLOPURINOL 100 MG TAB PO SCH (09:18)
== END 2018-02-23 14:30 | disposition home or self-care (01) ==
LOC: 2N 09:30 → ED 09:30 → SUATTDRO 10:41 → 2N 11:46

== ENCOUNTER 2019-01-13 18:10 | Inpatient (IN) ==
[2019-01-13 20:57] LABS: Basophils # (auto) 0.02 K/uL (0-0.2); Basophils % (auto) 0.3 %; Eosinophils # (auto) 0.02 K/uL (0-0.5); Eosinophils % (auto) 0.3 %; Hematocrit (blood only) 37.9 % (37-47); Hemoglobin 12.1 g/dL (12.0-16.0); Immature Granulocytes # (auto) 0.01 K/uL (0.00-0.02); Immature Granulocytes % (auto) 0.1 %; Lymphocytes # (auto) 0.99 K/uL (1.2-3.4); Lymphocytes % (auto) 14.7 %; Mean Corpuscular Hgb Conc 31.9 g/dL (32-36); Mean Corpuscular Volume 103.3 fL (80-100); Mean Platelet Volume 10.1 fL (7.4-10.4); Monocytes # (auto) 1.03 K/uL (0.11-0.59); Monocytes % (auto) 15.3 %; Neutrophils # (auto) 4.65 K/uL (1.4-6.5); Neutrophils % (auto) 69.3 %; Platelet Count 202 K/uL (130-400); RDW Coefficient of Variation 13.3 % (11.5-14.5); RDW Standard Deviation 50.6 fL (36.4-46.3); Red Blood Count 3.67 M/uL (4.2-5.4); White Blood Count 6.72 K/uL (4.8-10.8)
[2019-01-13 20:58] LABS: iSTAT Creatinine 1.5 mg/dl (0.6-1.3); iSTAT Hemoglobin 11.9 g/dl (12.0-16.0); iSTAT Ionized Calcium 1.12 mmol/l (1.12-1.32); iSTAT Potassium 3.9 mEq/L (3.3-5.0)
[2019-01-13 21:08] LABS: INR 1.2 (0.9-1.1); Partial Thromboplastin Ratio 0.9; Partial Thromboplastin Time 24.8 Seconds (21.0-31.0); Prothrombin Time 12.2 Seconds (9.0-12.0)
[2019-01-13 21:15] LABS: Albumin Level 3.6 gm/dl (3.4-5.0); BUN Creatinine Ratio 25.7 (10-20); Calcium 9.6 mg/dl (8.5-10.1); Creatinine Clr Calc Pharmacy 27.1 ml/min; Est GFR (African American) 38.1; Est GFR (Non-African American) 32.8; Potassium 3.8 mmol/L (3.5-5.1)
[2019-01-13 21:26] LABS: Albumin Globulin Ratio 1.1 (0.9-2); Bilirubin,Total 1.7 mg/dl (0.2-1); Globulin 3.3 gm/dl (2.5-4.0); Total Protein 6.9 gm/dl (6.4-8.2); Troponin I 0.135 ng/ml (0-0.045)
--- NOTE | 2019-01-13 21:42 | XRay Report ---
SINGLE VIEW CHEST CLINICAL HISTORY: Rectal bleeding. FINDINGS: An AP, portable, upright chest radiograph is compared to study dated 02/21/2018 and correlat ed with chest CT dated 01/14/2018. The examination is degraded by portable technique and patient rotat ion. The patient is status post midline sternotomy. The heart is enlarged noting atherosclerotic calc ification of the thoracic aorta. Enlargement of the central pulmonary arteries indicates pulmonary ar gill hypertension. There is pulmonary vascular congestion and mild interstitial edema. There is bibas ilar scarring/atelectasis. No large pleural effusion or pneumothorax is seen. The skeletal structures are osteopenic. The bony thorax is grossly intact. A right shoulder arthroplasty is in place. A meta llic wire is noted in the left breast. IMPRESSION: 1. Cardiomegaly with evidence of mild congestive failure. 2. No large pleural effusion is identified. Electronically signed by: Ben Valdes M.D. 01/13/2019 9:41 PM
[2019-01-13] MEDS ORDERED: ONDANSETRON INJ 2 MG/ML 2 ML VIAL IV PRN (23:30)
[2019-01-13] MEDS: LACTATED RINGER'S 1,000 ML IV SCH (23:49)
[2019-01-13] MEDS: ACETAMINOPHEN 325 MG TAB PO PRN (23:49)
[2019-01-14] MEDS ORDERED: Nursing to Pharmacy Communication ONE (00:02)
[2019-01-14] MEDS: FAMOTIDINE 20 MG in SYRINGE 3 ML IV SCH ×3 (00:25→20:20)
[2019-01-14 00:53] LABS: Hemoglobin 11.3 g/dL (12.0-16.0)
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
[2019-01-14] MEDS: LEVOTHYROXINE SODIUM 112 MCG TABLET PO SCH (05:45)
[2019-01-14 06:36] LABS: Hematocrit (blood only) 32.3 % (37-47); Hemoglobin 10.5 g/dL (12.0-16.0); Mean Corpuscular Hemoglobin 33.1 pg (25-34); Mean Corpuscular Hgb Conc 32.5 g/dL (32-36); Mean Corpuscular Volume 101.9 fL (80-100); Mean Platelet Volume 10.1 fL (7.4-10.4); Platelet Count 149 K/uL (130-400); RDW Coefficient of Variation 13.4 % (11.5-14.5); RDW Standard Deviation 49.9 fL (36.4-46.3); Red Blood Count 3.17 M/uL (4.2-5.4); White Blood Count 4.44 K/uL (4.8-10.8)
[2019-01-14 07:04] LABS: BUN Creatinine Ratio 25.8 (10-20); Calcium 8.7 mg/dl (8.5-10.1); Creatinine Clr Calc Pharmacy 32.8 ml/min; Est GFR (Non-African American) 41.4; Potassium 3.4 mmol/L (3.5-5.1)
[2019-01-14 07:16] LABS: Troponin I 0.134 ng/ml (0-0.045)
[2019-01-14] MEDS: predniSONE 5 MG TAB PO SCH (07:29)
[2019-01-14] MEDS: LACTATED RINGER'S 1,000 ML IV SCH ×3 (07:29→22:22)
[2019-01-14] MEDS: cycloSPORINE (SANDIMMUNE) 25 MG CAP PO SCH ×2 (07:29→20:18)
[2019-01-14] MEDS: MYCOPHENOLATE SODIUM 180 MG TAB PO SCH ×2 (07:29→20:18)
[2019-01-14] MEDS: METOPROLOL SUCC 50MG EXT REL TAB PO SCH ×2 (07:30→20:18)
[2019-01-14] MEDS: allopurinoL 100 MG TAB PO SCH (07:30)
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
--- NOTE | 2019-01-14 11:42 | Hospitalist Progress Note ---
Date of Service January 14, 2019 Assessment & Plan (1) Blood per rectum: Not currently producing significant amounts Has had prior and has been seen by [facility] [place] [facility] This is a benign tubular adenoma on Eliquis GI Dr. Campbell was consulted, see recs She is stable, repeat Hgb from AM value improved to 11.1 (2) Status post heart transplant: c/w home meds (3) Hypertension: c/w home meds, hemodynamically stable (4) Hyperlipidemia: c/w home meds, hemodynamically stable (5) Elevated troponin: - Chronic, no need to check Supervising Physician Co-Signing Physician Notes I agree with the impression and plan as noted above. I saw the patient with resident physician confirmed rosas portion history and physical examination. Upon examination, the patient is without complaints. She describes episodes of bright red blood per rectum. She has a known history of rectal polyp which was previously biopsied and there is a pending plan for surgical removal. Her hemoglobin has remained stable; actually improved this afternoon to 11.1. She was seen in consultation by cardiology as she had a slight troponin elevation; other without symptoms this is not worrisome. A gastroenterology consult is been placed and this is pending. We will await gastroenterology recommendations. Subjective Dahiana notes that her legs do hurt her this AM, but no upper extremity muscle pain. She is currently on Eliquis. No difficulty with breathing, chest pains, nausea, fever, chills. She notes no current copious bleeding per rectum but was concerned with bleeding when she came into ED. Physical Exam Constitutional: WD/WN, vitals as above Eyes: PERRL and EOM intact bilaterally Neck: normal visual inspection and trachea midline Respiratory: normal respiratory effort, lungs clear to auscultation Cardiovascular: Rate/Rhythm: regular rate and regular rhythm Gastrointestinal (Abdomen): Percussion/Palpation: abdomen soft; abdomen nontender and no guarding Musculoskeletal: Head/Neck/Chest: normocephalic and head atraumatic bilateral diffuse mild tenderness to LE Neurologic: moves all extremities and awake Psychiatric: A+Ox3, euthymic affect Results & Data Vital Signs (Past 12 Hours) Vital Signs Temp Pulse Pulse Pulse Resp BP BP 01/14/19 11:17 36.8 C 77 18 143/83 H 01/14/19 08:00 75 01/14/19 07:31 36.7 C 75 18 145/84 H 01/14/19 04:26 36.8 C 79 18 132/76 01/14/19 00:20 81 01/14/19 00:04 36.4 C 76 18 136/79 Pulse Ox 01/14/19 11:17 95 01/14/19 08:00 01/14/19 07:31 95 01/14/19 04:26 96 01/14/19 00:20 01/14/19 00:04 97 Laboratory Results Laboratory Results - last 24 hr 01/13/19 01/13/19 01/13/19 20:33 20:33 20:33 WBC 6.72 RBC 3.67 L Hgb 12.1 POC Hgb Hct 37.9 POC Hct MCV 103.3 H MCH 33.0 MCHC 31.9 L RDW Std Deviation 50.6 H RDW Coeff of Jeniffer 13.3 Plt Count 202 MPV 10.1 Immature Gran % (Auto) 0.1 Neut % (Auto) 69.3 Lymph % (Auto) 14.7 [place] % (Auto) 15.3 Eos % (Auto) 0.3 Baso % (Auto) 0.3 Immature Gran # (Auto) 0.01 Neut # (Auto) 4.65 Lymph # (Auto) 0.99 L [place] # (Auto) 1.03 H Eos # (Auto) 0.02 Baso # (Auto) 0.02 PT 12.2 H INR 1.2 H APTT 24.8 PTT Ratio 0.9 POC Sodium Sodium 140 POC Potassium Potassium 3.8 POC Chloride Chloride 106 Carbon Dioxide 28 POC Total CO2 Anion Gap 6.0 POC Anion Gap POC BUN BUN 38 H Creatinine 1.49 H POC Creatinine Est Cr Clr Drug Dosing 27.1 Est GFR ( Amer) 38.1 Est GFR (Non-Af Amer) 32.8 BUN/Creatinine Ratio 25.7 H Glucose 120 H POC Glucose (other) Calcium 9.6 POC Ioniz Calcium Monique Total Bilirubin 1.7 H AST 27 ALT 29 Alkaline Phosphatase 52 Total Creatine Kinase Troponin I 0.135 H* Total Protein 6.9 Albumin 3.6 Globulin 3.3 Albumin/Globulin Ratio 1.1 POC Stool Occult Blood Blood Type Antibody Screen 01/13/19 01/13/19 01/13/19 20:33 20:45 20:48 WBC RBC Hgb POC Hgb 11.9 L Hct POC Hct 35 L MCV MCH MCHC RDW Std Deviation RDW Coeff of Jeniffer Plt Count MPV Immature Gran % (Auto) Neut % (Auto) Lymph % (Auto) [place] % (Auto) Eos % (Auto) Baso % (Auto) Immature Gran # (Auto) Neut # (Auto) Lymph # (Auto) [place] # (Auto) Eos # (Auto) Baso # (Auto) PT INR APTT PTT Ratio POC Sodium 141 Sodium POC Potassium 3.9 Potassium POC Chloride 103 Chloride Carbon Dioxide POC Total CO2 28 Anion Gap POC Anion Gap 15.0 L POC BUN 34 H BUN Creatinine POC Creatinine 1.5 H Est Cr Clr Drug Dosing Est GFR ( Amer) Est GFR (Non-Af Amer) BUN/Creatinine Ratio Glucose POC Glucose (other) 120 H Calcium POC Ioniz Calcium Monique 1.12 Total Bilirubin AST ALT Alkaline Phosphatase Total Creatine Kinase Troponin I Total Protein Albumin Globulin Albumin/Globulin Ratio POC Stool Occult Blood Positive A Blood Type A Positive Antibody Screen NEGATIVE 01/14/19 01/14/19 01/14/19 00:35 06:17 06:17 WBC 4.44 L RBC 3.17 L Hgb 11.3 L 10.5 L POC Hgb Hct 35.0 L 32.3 L POC Hct MCV 101.9 H MCH 33.1 MCHC 32.5 RDW Std Deviation 49.9 H RDW Coeff of Jeniffer 13.4 Plt Count 149 MPV 10.1 Immature Gran % (Auto) Neut % (Auto) Lymph % (Auto) [place] % (Auto) Eos % (Auto) Baso % (Auto) Immature Gran # (Auto) Neut # (Auto) Lymph # (Auto) [place] # (Auto) Eos # (Auto) Baso # (Auto) PT INR APTT PTT Ratio POC Sodium Sodium 142 POC Potassium Potassium 3.4 L POC Chloride Chloride 107 Carbon Dioxide 29 POC Total CO2 Anion Gap 5.0 POC Anion Gap POC BUN BUN 32 H Creatinine 1.23 H POC Creatinine Est Cr Clr Drug Dosing 32.8 Est GFR ( Amer) 48.0 Est GFR (Non-Af Amer) 41.4 BUN/Creatinine Ratio 25.8 H Glucose 81 POC Glucose (other) Calcium 8.7 POC Ioniz Calcium Monique Total Bilirubin AST ALT Alkaline Phosphatase Total Creatine Kinase Troponin I 0.134 H* Total Protein Albumin Globulin Albumin/Globulin Ratio POC Stool Occult Blood Blood Type Antibody Screen 01/14/19 01/14/19 01/14/19 12:44 13:53 13:54 WBC RBC Hgb 11.1 L POC Hgb Hct 34.6 L POC Hct MCV MCH MCHC RDW Std Deviation RDW Coeff of Jeniffer Plt Count MPV Immature Gran % (Auto) Neut % (Auto) Lymph % (Auto) [place] % (Auto) Eos % (Auto) Baso % (Auto) Immature Gran # (Auto) Neut # (Auto) Lymph # (Auto) [place] # (Auto) Eos # (Auto) Baso # (Auto) PT INR APTT PTT Ratio POC Sodium Sodium POC Potassium Potassium POC Chloride Chloride Carbon Dioxide POC Total CO2 Anion Gap POC Anion Gap POC BUN BUN Creatinine POC Creatinine Est Cr Clr Drug Dosing Est GFR ( Amer) Est GFR (Non-Af Amer) BUN/Creatinine Ratio Glucose POC Glucose (other) Calcium POC Ioniz Calcium Monique Total Bilirubin AST ALT Alkaline Phosphatase Total Creatine Kinase 42 Troponin I 0.144 H* Total Protein Albumin Globulin Albumin/Globulin Ratio POC Stool Occult Blood Blood Type Antibody Screen Medications Administered Acetaminophen (Tylenol) 650 mg PO Q4H PRN PRN Reason: mild pain or fever Stop: 02/12/19 23:29 Last Admin: 01/13/19 23:49 Dose: 650 mg Documented by: [id number] Allopurinol (Zyloprim) [address] [facility] Stop: 02/13/19 08:59 Last Admin: 01/14/19 07:30 Dose: 100 mg Documented by: [id number] Cyclosporine (Sandimmune) 75 mg PO BID [facility] Stop: 02/13/19 08:59 Last Admin: 01/14/19 07:29 Dose: 75 mg Documented by: [id number] [facility] Stop: 02/13/19 11:14 Last Admin: 01/14/19 11:58 Dose: 20 mg Documented by: [id number] Famotidine 20 mg/ Syringe 5 mls @ 2.5 mls/min IV BID [facility] Stop: 02/12/19 22:44 Last Admin: 01/14/19 08:35 Dose: 2.5 mls/min Documented by: [id number] Admin: 01/14/19 00:25 Dose: 2.5 mls/min Documented by: [id number] Lactated Ringer's (Lr) 1,000 mls @ 125 mls/hr IV .Q8H [facility] Stop: 02/12/19 23:29 Last Admin: 01/14/19 15:15 Dose: 125 mls/hr Documented by: [id number] Infusion: 01/14/19 15:15 Dose: 125 mls/hr Documented by: [id number] Admin: 01/14/19 07:29 Dose: 125 mls/hr Documented by: [id number] Infusion: 01/14/19 07:29 Dose: 125 mls/hr Documented by: [id number] Admin: 01/13/19 23:49 Dose: 125 mls/hr Documented by: [id number] Levothyroxine Sodium (Synthroid) 112 mcg PO DAILYBB [facility] Stop: 02/13/19 06:29 Last Admin: 01/14/19 05:45 Dose: 112 mcg Documented by: [id number] Metoprolol Succinate (Toprol Xl) 100 mg PO BID [facility] Stop: 02/13/19 08:59 Last Admin: 01/14/19 07:30 Dose: 100 mg Documented by: [id number] Mycophenolate Sodium (Myfortic) [address] [facility] Stop: 02/13/19 08:59 Last Admin: 01/14/19 07:29 Dose: 360 mg Documented by: [id number] Prednisone (Prednisone) [address] [facility] Stop: 02/13/19 08:59 Last Admin: 01/14/19 07:29 Dose: 5 mg Documented by: [id number] Resident Activity Tracking Resident Involvement: Resident Care Provided Care Provided: Adult Hospital Medicine
[2019-01-14] MEDS: FUROSEMIDE 20 MG TAB PO SCH (11:58)
[2019-01-14 14:26] LABS: Hematocrit (blood only) 34.6 % (37-47); Hemoglobin 11.1 g/dL (12.0-16.0)
--- NOTE | 2019-01-14 16:57 | Consultation Report ---
DATE OF CONSULTATION: 01/14/2019 REASON FOR CONSULTATION: Rectal bleeding with anemia. HISTORY OF PRESENT ILLNESS: The patient is an 78-year-old female with heart transplant 19 years ago at [facility] and doing well from that aspect. She does have some rectal bleeding which was evaluated by Dr. Rosenbaum, colorectal surgeon from [facility] on November 16 with a proctoscopy, which showed a tubular adenoma in the rectum, it was large and it was felt that it should be removed surgically transanally at [facility] and arrangements are in progress to have that accomplished. The patient has not had a colonoscopy in 12 years and that was to be done first, but has not yet been scheduled. She presents to the hospital with worsening rectal bleeding and hemoglobin of 11.3. PAST MEDICAL HISTORY: Remarkable for heart transplant on ____ medications and Eliquis, which is currently being held. She also has had a hysterectomy, tonsillectomy, umbilical hernia repair. She has had a temporary colostomy for bowel resection, presumably for diverticulitis with a reversal. She had a cholecystectomy, cataract surgery and a thyroidectomy. 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 She also had skin cancer, hypertension, hyperlipidemia, hypothyroidism. MEDICATIONS: Per list. ALLERGIES: AMILORIDE, IODINE, ONION, SULFA, MORPHINE, AMIODARONE, AMOXICILLIN AND CODEINE. FAMILY HISTORY: Positive for mother with pancreatic cancer. Father with lung cancer. SOCIAL HISTORY: The patient is a . She lives alone. She does feel safe at home, does not smoke, does not use alcohol. REVIEW OF SYSTEMS: Positive for some weakness and rectal bleeding. Remainder is negative. PHYSICAL EXAMINATION: GENERAL: The patient appears frail, but in no acute distress. She has a sternotomy scar from a previous transplant of her heart. SKIN: Dark probably from amiodarone use in the past. ABDOMEN: Shows midline abdominal scar with an incisional hernia. She also has a right-sided colostomy scar. There are no masses or hepatosplenomegaly appreciated. IMPRESSION: The patient has a rectal tubular adenoma that is intended to be removed surgically transanally at [facility] by the colorectal surgeons. She needs to have a colonoscopy prior to that. I can proceed with doing that on 01/17/2019 if the patient remains in the hospital and her prep orders have been written for that. If she is stable enough to be discharged in the interim, then she can pursue her bowel prep as an outpatient and come in Thursday afternoon to have it done as an add-on and then follow up with Dr. Rosenbaum next Thursday to arrange for the surgery.
[2019-01-14] MEDS: ROSUVASTATIN CALCIUM 5 MG TAB PO SCH (20:18)
[2019-01-15] MEDS: LEVOTHYROXINE SODIUM 112 MCG TABLET PO SCH (05:36)
[2019-01-15] MEDS: LACTATED RINGER'S 1,000 ML IV SCH ×3 (05:36→21:20)
[2019-01-15 06:46] LABS: Hematocrit (blood only) 34.2 % (37-47); Hemoglobin 11.1 g/dL (12.0-16.0); Mean Corpuscular Hemoglobin 32.9 pg (25-34); Mean Corpuscular Hgb Conc 32.5 g/dL (32-36); Mean Corpuscular Volume 101.5 fL (80-100); Mean Platelet Volume 10.2 fL (7.4-10.4); Platelet Count 154 K/uL (130-400); RDW Coefficient of Variation 13.2 % (11.5-14.5); RDW Standard Deviation 48.6 fL (36.4-46.3); Red Blood Count 3.37 M/uL (4.2-5.4); White Blood Count 4.56 K/uL (4.8-10.8)
[2019-01-15 07:20] LABS: BUN Creatinine Ratio 19.1 (10-20); Calcium 8.5 mg/dl (8.5-10.1); Creatinine Clr Calc Pharmacy 35.1 ml/min; Est GFR (Non-African American) 44.9; Potassium 2.9 mmol/L (3.5-5.1)
[2019-01-15] MEDS ORDERED: POTASSIUM CHLORIDE 20 MEQ TABCR PO STA (08:07)
[2019-01-15] MEDS: METOPROLOL SUCC 50MG EXT REL TAB PO SCH ×2 (08:54→21:08)
[2019-01-15] MEDS: allopurinoL 100 MG TAB PO SCH (08:54)
[2019-01-15] MEDS: predniSONE 5 MG TAB PO SCH (08:54)
[2019-01-15] MEDS: cycloSPORINE (SANDIMMUNE) 25 MG CAP PO SCH ×2 (08:55→21:08)
[2019-01-15] MEDS: FUROSEMIDE 20 MG TAB PO SCH (08:55)
[2019-01-15] MEDS: MYCOPHENOLATE SODIUM 180 MG TAB PO SCH ×2 (08:55→21:07)
[2019-01-15] MEDS: FAMOTIDINE 20 MG in SYRINGE 3 ML IV SCH ×2 (08:58→22:07)
[2019-01-15] MEDS: ENOXAPARIN INJ 60 MG/0.6 ML SYR SQ SCH ×2 (12:34→23:37)
[2019-01-15] MEDS: HydrALAZINE TAB 50 MG TAB PO SCH ×2 (12:34→21:07)
--- NOTE | 2019-01-15 14:58 | Hospitalist Progress Note ---
Date of Service January 15, 2019 Assessment & Plan (1) Blood per rectum: - Patient Hgb is stable, no more blood per rectum - Resume diet as tolerated - GI consulted, appreciate recs, colonoscopy will be performed on Thursday morning We will make patient n.p.o. tomorrow afternoon and start the prep tomorrow evening - Continue to hold Eliquis Considering patient's risk of thromboembolism, will treat with therapeutic Lovenox, patient will receive 2 doses today and 1 dose tomorrow Hold evening dose of Lovenox on 01/16/2019 in anticipation for Mondays colonoscopy (2) Status post heart transplant: Continue prednisone and mycophenolate (3) Hypertension: Continue hydralazine 50 mg twice daily and metoprolol 100 mg twice daily (4) Hyperlipidemia: Continue Crestor (5) Elevated troponin: - Chronic, no need to check (6) H/O thyroidectomy: Continue levothyroxine Supervising Physician Co-Signing Physician Notes I agree with the impression and plan as noted above. I saw the patient with resident physician confirmed rosas portion history and physical examination. Upon examination, the patient is without complaints. She has had no recurrence of the bright red blood per rectum. She was seen by gastroenterology and the plan is for a colonoscopy on Thursday. The patient would have some difficulty given her condition with the colonoscopy prep; in addition because we need to hold the Eliquis, sending her home would be difficult and that she would not be able to self treat with Lovenox. Given both of these complicating factors, the patient will remain here and we will start the prep tomorrow. PLAN Start therapeutic Lovenox today and half of tomorrow Start colonoscopy prep tomorrow Colonoscopy on Thursday Restart Eliquis post colonoscopy (timing will depend upon findings/biopsies during colonoscopy) Ultimately she will need a resection of a rectal polyp at the [facility] in the near future; the colonoscopy Thursday is to exclude the presence of a more proximal lesion prior to that resection. Subjective Patient states she is doing well this morning, denies any blood per rectum. Review of Systems Constitutional: no fever, no chills and no malaise Respiratory: no cough, no dyspnea and no wheezing Cardiovascular: no chest pain, no dyspnea and no palpitations Gastrointestinal: no abdominal pain, no nausea, no vomiting and no diarrhea/loose stools Physical Exam Constitutional: WD/WN, vitals as above Eyes: PERRL, conjunctivae normal, anicteric sclerae ENMT: external ear and nose normal, oropharynx normal Neck: trachea midline, no thyromegaly Respiratory: normal respiratory effort, lungs clear to auscultation Cardiovascular: RRR, no murmur, no edema Gastrointestinal (Abdomen): normal bowel sounds, soft, nontender, no hepatosplenomegaly Musculoskeletal: no cyanosis or clubbing, extremities motor strength 5/5 Skin: Hyperpigmented, subcutaneous nodular lesions on bilateral forearms Neurologic: PERRL, EOMI, accommodation nl, no face palsy, no dysarthria Psychiatric: A+Ox3, euthymic affect Results & Data Vital Signs (Past 12 Hours) Vital Signs Temp Pulse Pulse Resp BP BP Pulse Ox 01/15/19 11:21 36.6 C 80 18 141/75 H 96 01/15/19 08:00 77 01/15/19 07:26 36.7 C 78 20 155/80 H 92 01/15/19 04:47 36.7 C 78 16 157/83 H 94 Resident Activity Tracking Resident Involvement: Resident Care Provided Care Provided: Adult Hospital Medicine
[2019-01-15] MEDS: ROSUVASTATIN CALCIUM 5 MG TAB PO SCH (21:07)
[2019-01-16] MEDS: ACETAMINOPHEN 325 MG TAB PO PRN (00:23)
[2019-01-16] MEDS: LACTATED RINGER'S 1,000 ML IV SCH ×3 (05:19→20:12)
[2019-01-16] MEDS: LEVOTHYROXINE SODIUM 112 MCG TABLET PO SCH (05:59)
[2019-01-16 06:24] LABS: Basophils # (auto) 0.02 K/uL (0-0.2); Basophils % (auto) 0.4 %; Eosinophils # (auto) 0.06 K/uL (0-0.5); Eosinophils % (auto) 1.2 %; Hematocrit (blood only) 31.6 % (37-47); Hemoglobin 10.3 g/dL (12.0-16.0); Lymphocytes # (auto) 1.28 K/uL (1.2-3.4); Lymphocytes % (auto) 26.3 %; Mean Corpuscular Hemoglobin 32.9 pg (25-34); Mean Corpuscular Hgb Conc 32.6 g/dL (32-36); Monocytes # (auto) 0.73 K/uL (0.11-0.59); Neutrophils # (auto) 2.77 K/uL (1.4-6.5); Neutrophils % (auto) 57.1 %; Platelet Count 154 K/uL (130-400); RDW Coefficient of Variation 13.2 % (11.5-14.5); RDW Standard Deviation 48.5 fL (36.4-46.3); Red Blood Count 3.13 M/uL (4.2-5.4); White Blood Count 4.86 K/uL (4.8-10.8)
[2019-01-16 06:55] LABS: BUN Creatinine Ratio 16.5 (10-20); Calcium 8.3 mg/dl (8.5-10.1); Creatinine Clr Calc Pharmacy 32.8 ml/min; Est GFR (Non-African American) 41.4; Potassium 3.2 mmol/L (3.5-5.1)
[2019-01-16] MEDS ORDERED: POTASSIUM CHLORIDE 20 MEQ TABCR PO STA (07:46)
--- NOTE | 2019-01-16 08:34 | Progress Note ---
DATE: 01/16/2019 SUBJECTIVE: The patient is little bit confused today about what is happening and I explained to her again that we are going to be switching her from Eliquis to Lovenox temporarily to prevent further DVTs and PEs and then proceed with a colonoscopy on Thursday as an inpatient because we can oversee her prep and monitor her bleeding and clotting better than as an outpatient and that hopefully next Thursday have her see Dr. Rosenbaum about getting that rectal polyp removed. OBJECTIVE: On physical exam, the patient is a little bit tearful. Blood pressure is 136/80, pulse 75, respirations 18, temperature is 36.8, O2 saturation on room air is 93%. LABORATORY DATA: Hemoglobin today is down to 10.3, but she has had no significant bleeding. It is probably due to equilibration. Potassium is a little bit low at 3.2, BUN 20, creatinine 1.23. IMPRESSION: The patient has bleeding rectal polyp. PLAN: To continue her on Lovenox for now to prevent clots and proceed with colonoscopy on Thursday. If there are no other significant lesions found and she is stable, we can have her see Dr. Rosenbaum on Thursday as an outpatient to arrange for the transanal polyp removal at [place].
[2019-01-16] MEDS: HydrALAZINE TAB 50 MG TAB PO SCH ×2 (08:48→20:02)
[2019-01-16] MEDS: FUROSEMIDE 20 MG TAB PO SCH (08:49)
[2019-01-16] MEDS: cycloSPORINE (SANDIMMUNE) 25 MG CAP PO SCH ×2 (08:49→20:03)
[2019-01-16] MEDS: MYCOPHENOLATE SODIUM 180 MG TAB PO SCH ×2 (08:49→20:02)
[2019-01-16] MEDS: predniSONE 5 MG TAB PO SCH (08:49)
[2019-01-16] MEDS: allopurinoL 100 MG TAB PO SCH (08:50)
[2019-01-16] MEDS: METOPROLOL SUCC 50MG EXT REL TAB PO SCH ×2 (08:50→20:05)
[2019-01-16] MEDS: FAMOTIDINE 20 MG in SYRINGE 3 ML IV SCH ×2 (08:51→20:11)
[2019-01-16] MEDS: ENOXAPARIN INJ 60 MG/0.6 ML SYR SQ SCH (12:12)
--- NOTE | 2019-01-16 14:56 | Hospitalist Progress Note ---
Date of Service January 16, 2019 Assessment & Plan (1) Blood per rectum: 78 year-old female history of immunosuppression in setting of heart transplant, presumed bleeding rectal polyp presented with bright red blood per rectum. Hemoglobin is been stable. She remains on inpatient service for evaluation by GI, colonoscopy Thursday morning. Blood per rectum -Hemoglobin remains stable GI following, appreciate recommendations N.p.o. this afternoon, bowel prep afternoon and evening, colonoscopy tomorrow morning to r/o additional causes of blood aside from rectal polyp Plan is to have the rectal polyp removed by colorectal surgery at [facility] at the end of the week - Continue to hold Eliquis Considering patient's risk of thromboembolism, treated with therapeutic Lovenox, last dose this morning in preparation for colonoscopy (2) Status post heart transplant: Continue prednisone and mycophenolate (3) Hypertension: Continue hydralazine 50 mg twice daily and metoprolol 100 mg twice daily (4) Hyperlipidemia: Continue Crestor (5) Elevated troponin: - Chronic, no need to check (6) H/O thyroidectomy: Continue levothyroxine Supervising Physician Co-Signing Physician Notes I agree with the impression and plan as noted above. I saw the patient with resident physician confirmed rosas portion history and physical examination. PLAN Lovenox discontinued after today Start colonoscopy prep this afternoon Colonoscopy on tomorrow Replete potassium Restart Eliquis post colonoscopy (timing will depend upon findings/biopsies during colonoscopy) Ultimately she will need a resection of a rectal polyp at the [facility] in the near future; the colonoscopy tomorrow is to exclude the possibility of a more proximal lesion. Subjective Patient says she is anxious this morning. She spoke with Dr. Campbell regarding the plan and states that she felt very confused. She said she must have forgotten the conversations that she had yesterday with the GI specialist and our team. Patient described having some left-sided chest pain this morning when she was getting worked up. Pain was nonexertional, reproducible. Review of Systems Review of Systems: All systems reviewed & are unremarkable except as noted in HPI & below Physical Exam Constitutional: WD/WN, vitals as above Eyes: PERRL, conjunctivae normal, anicteric sclerae ENMT: external ear and nose normal, oropharynx normal Neck: trachea midline, no thyromegaly Respiratory: normal respiratory effort, lungs clear to auscultation Cardiovascular: RRR, no murmur, no edema Gastrointestinal (Abdomen): normal bowel sounds, soft, nontender, no hepatosplenomegaly Musculoskeletal: no cyanosis or clubbing, extremities motor strength 5/5 Neurologic: PERRL, EOMI, accommodation nl, no face palsy, no dysarthria Psychiatric: A+Ox3, euthymic affect Results & Data Vital Signs (Past 12 Hours) Vital Signs Temp Pulse Pulse Resp BP BP Pulse Ox 01/16/19 07:57 36.8 C 75 18 136/80 93 01/16/19 07:35 76 01/16/19 04:00 36.5 C 82 20 123/72 93 Resident Activity Tracking Resident Involvement: Resident Care Provided Care Provided: Adult Hospital Medicine
[2019-01-16] MEDS: LAVAGE SOLUTION 4000ML PO SCH ×2 (19:57→20:11)
[2019-01-16] MEDS: ROSUVASTATIN CALCIUM 5 MG TAB PO SCH (20:02)
[2019-01-17] MEDS: LEVOTHYROXINE SODIUM 112 MCG TABLET PO SCH (06:05)
[2019-01-17] MEDS: LAVAGE SOLUTION 4000ML PO SCH (06:05)
[2019-01-17] MEDS: predniSONE 5 MG TAB PO SCH (07:29)
[2019-01-17] MEDS: cycloSPORINE (SANDIMMUNE) 25 MG CAP PO SCH ×2 (07:29→20:41)
[2019-01-17] MEDS: FAMOTIDINE 20 MG in SYRINGE 3 ML IV SCH ×2 (07:29→20:39)
[2019-01-17] MEDS: HydrALAZINE TAB 50 MG TAB PO SCH ×2 (07:29→20:41)
[2019-01-17] MEDS: FUROSEMIDE 20 MG TAB PO SCH (07:29)
[2019-01-17] MEDS: METOPROLOL SUCC 50MG EXT REL TAB PO SCH ×2 (07:29→20:43)
[2019-01-17] MEDS: MYCOPHENOLATE SODIUM 180 MG TAB PO SCH ×2 (07:29→20:43)
[2019-01-17] MEDS: LACTATED RINGER'S 1,000 ML IV SCH ×2 (07:30→14:14)
[2019-01-17] MEDS: allopurinoL 100 MG TAB PO SCH (07:30)
--- NOTE | 2019-01-17 15:19 | Anesthesiology Progress Note ---
Date of Service The patient came to us from the floor for a colonoscopy.After taking her history and explaining the anesthetic to her I noticed that her Troponin was elevated and appears to be trending upward. The most recent one is 0.144.I discussed this with Dr Campbell and we cancelled the case because is not an emergency. We will send her back to the floor and get cardiology involved,. January 17, 2019 Physical Exam Vital Signs: Last Vital Signs Temp 36.5 C 01/17/19 15:04 Pulse 86 01/17/19 15:04 Resp 18 01/17/19 15:04 BP 146/82 H 01/17/19 15:04 Pulse Ox 96 01/17/19 15:04 Results & Data Medications Administered Acetaminophen (Tylenol) 650 mg PO Q4H PRN PRN Reason: mild pain or fever Stop: 02/12/19 23:29 Last Admin: 01/16/19 00:23 Dose: 650 mg Documented by: [id number] Admin: 01/13/19 23:49 Dose: 650 mg Documented by: [id number] Allopurinol (Zyloprim) 100 mg PO [facility] Stop: 02/13/19 08:59 Last Admin: 01/17/19 07:30 Dose: 100 mg Documented by: [id number] Admin: 01/16/19 08:50 Dose: 100 mg Documented by: [id number] Admin: 01/15/19 08:54 Dose: 100 mg Documented by: [id number] Admin: 01/14/19 07:30 Dose: 100 mg Documented by: [id number] Cyclosporine (Sandimmune) 75 mg PO BID [facility] Stop: 02/13/19 08:59 Last Admin: 01/17/19 07:29 Dose: 75 mg Documented by: [id number] Admin: 01/16/19 20:03 Dose: 75 mg Documented by: [id number] Admin: 01/16/19 08:49 Dose: 75 mg Documented by: [id number] Admin: 01/15/19 21:08 Dose: 75 mg Documented by: [id number] Admin: 01/15/19 08:55 Dose: 75 mg Documented by: [id number] Admin: 01/14/19 20:18 Dose: 75 mg Documented by: [id number] Admin: 01/14/19 07:29 Dose: 75 mg Documented by: [id number] Furosemide (Lasix) 20 mg PO QAM [facility] Stop: 02/13/19 11:14 Last Admin: 01/17/19 07:29 Dose: 20 mg Documented by: [id number] Admin: 01/16/19 08:49 Dose: 20 mg Documented by: [id number] Admin: 01/15/19 08:55 Dose: 20 mg Documented by: [id number] Admin: 01/14/19 11:58 Dose: 20 mg Documented by: [id number] Hydralazine HCl (Apresoline) 50 mg PO BID [facility] Stop: 02/14/19 11:14 Last Admin: 01/17/19 07:29 Dose: 50 mg Documented by: [id number] Admin: 01/16/19 20:02 Dose: 50 mg Documented by: [id number] Admin: 01/16/19 08:48 Dose: 50 mg Documented by: [id number] Admin: 01/15/19 21:07 Dose: 50 mg Documented by: [id number] Admin: 01/15/19 12:34 Dose: 50 mg Documented by: [id number] Famotidine 20 mg/ Syringe 5 mls @ 2.5 mls/min IV BID [facility] Stop: 02/12/19 22:44 Last Admin: 01/17/19 07:29 Dose: 2.5 mls/min Documented by: [id number] Admin: 01/16/19 20:11 Dose: 2.5 mls/min Documented by: [id number] Admin: 01/16/19 08:51 Dose: 2.5 mls/min Documented by: [id number] Admin: 01/15/19 22:07 Dose: 2.5 mls/min Documented by: [id number] Admin: 01/15/19 08:58 Dose: 2.5 mls/min Documented by: [id number] Admin: 01/14/19 20:20 Dose: 2.5 mls/min Documented by: [id number] Admin: 01/14/19 08:35 Dose: 2.5 mls/min Documented by: [id number] Admin: 01/14/19 00:25 Dose: 2.5 mls/min Documented by: [id number] Lactated Ringer's (Lr) 1,000 mls @ 125 mls/hr IV .Q8H [facility] Stop: 02/12/19 23:29 Last Admin: 01/17/19 14:14 Dose: 125 mls/hr Documented by: [id number] Infusion: 01/17/19 14:14 Dose: 125 mls/hr Documented by: [id number] Admin: 01/17/19 07:30 Dose: 125 mls/hr Documented by: [id number] Infusion: 01/17/19 04:45 Dose: 125 mls/hr Documented by: [id number] Admin: 01/16/19 20:12 Dose: 125 mls/hr Documented by: [id number] Infusion: 01/16/19 20:11 Dose: 125 mls/hr Documented by: [id number] Admin: 01/16/19 12:11 Dose: 125 mls/hr Documented by: [id number] Infusion: 01/16/19 12:11 Dose: 125 mls/hr Documented by: [id number] Admin: 01/16/19 05:19 Dose: 125 mls/hr Documented by: [id number] Infusion: 01/16/19 05:19 Dose: 125 mls/hr Documented by: [id number] Admin: 01/15/19 21:20 Dose: 125 mls/hr Documented by: [id number] Infusion: 01/15/19 21:19 Dose: 0 mls/hr Documented by: [id number] Admin: 01/15/19 13:33 Dose: 125 mls/hr Documented by: [id number] Infusion: 01/15/19 13:33 Dose: 125 mls/hr Documented by: [id number] Admin: 01/15/19 05:36 Dose: 125 mls/hr Documented by: [id number] Infusion: 01/15/19 05:36 Dose: 125 mls/hr Documented by: [id number] Admin: 01/14/19 22:22 Dose: 125 mls/hr Documented by: [id number] Infusion: 01/14/19 22:22 Dose: 125 mls/hr Documented by: [id number] Admin: 01/14/19 15:15 Dose: 125 mls/hr Documented by: [id number] Infusion: 01/14/19 15:15 Dose: 125 mls/hr Documented by: [id number] Admin: 01/14/19 07:29 Dose: 125 mls/hr Documented by: [id number] Infusion: 01/14/19 07:29 Dose: 125 mls/hr Documented by: [id number] Admin: 01/13/19 23:49 Dose: 125 mls/hr Documented by: [id number] Levothyroxine Sodium (Synthroid) 112 mcg PO DAILYBB [facility] Stop: 02/13/19 06:29 Last Admin: 01/17/19 06:05 Dose: 112 mcg Documented by: [id number] Admin: 01/16/19 05:59 Dose: 112 mcg Documented by: [id number] Admin: 01/15/19 05:36 Dose: 112 mcg Documented by: [id number] Admin: 01/14/19 05:45 Dose: 112 mcg Documented by: [id number] Metoprolol Succinate (Toprol Xl) 100 mg PO BID [facility] Stop: 02/13/19 08:59 Last Admin: 01/17/19 07:29 Dose: 100 mg Documented by: [id number] Admin: 01/16/19 20:05 Dose: 100 mg Documented by: [id number] Admin: 01/16/19 08:50 Dose: 100 mg Documented by: [id number] Admin: 01/15/19 21:08 Dose: 100 mg Documented by: [id number] Admin: 01/15/19 08:54 Dose: 100 mg Documented by: [id number] Admin: 01/14/19 20:18 Dose: 100 mg Documented by: [id number] Admin: 01/14/19 07:30 Dose: 100 mg Documented by: [id number] Mycophenolate Sodium (Myfortic) 180 mg PO HS [facility] Stop: 02/13/19 20:59 Last Admin: 01/16/19 20:02 Dose: 180 mg Documented by: [id number] Admin: 01/15/19 21:07 Dose: 180 mg Documented by: [id number] Admin: 01/14/19 20:18 Dose: 180 mg Documented by: [id number] Mycophenolate Sodium (Myfortic) 360 mg PO QAM [facility] Stop: 02/13/19 08:59 Last Admin: 01/17/19 07:29 Dose: 360 mg Documented by: [id number] Admin: 01/16/19 08:49 Dose: 360 mg Documented by: [id number] Admin: 01/15/19 08:55 Dose: 360 mg Documented by: [id number] Admin: 01/14/19 07:29 Dose: 360 mg Documented by: [id number] Prednisone (Prednisone) 5 mg PO QAM [facility] Stop: 02/13/19 08:59 Last Admin: 01/17/19 07:29 Dose: 5 mg Documented by: [id number] Admin: 01/16/19 08:49 Dose: 5 mg Documented by: [id number] Admin: 01/15/19 08:54 Dose: 5 mg Documented by: [id number] Admin: 01/14/19 07:29 Dose: 5 mg Documented by: [id number] Rosuvastatin Calcium (Crestor) 5 mg PO HS [facility] Stop: 02/13/19 20:59 Last Admin: 01/16/19 20:02 Dose: 5 mg Documented by: [id number] Admin: 01/15/19 21:07 Dose: 5 mg Documented by: [id number] Admin: 01/14/19 20:18 Dose: 5 mg Documented by: [id number]
--- NOTE | 2019-01-17 16:25 | Hospitalist Progress Note ---
Date of Service January 17, 2019 Assessment & Plan (1) Blood per rectum: 78 year-old female history of immunosuppression in setting of heart transplant, presumed bleeding rectal polyp presented with bright red blood per rectum. Hemoglobin is been stable. She remains on inpatient service for evaluation by GI, colonoscopy now moved to Thursday. Blood per rectum -Hemoglobin remains stable GI following, appreciate recommendations -Was notified that was not performed as requesting cardiology consult from elevated trop and ECG changes. Patient is well known to me in clinic and has a history of elevated trops. Will consult cardiology for request for okay to have colonoscopy. Clear fluids tonight so she won't have to repeat bowel prep. Completed bowel prep, colonoscopy requested to r/o additional causes of blood aside from rectal polyp Plan is to have the rectal polyp removed by colorectal surgery at [place] at the end of the week - Continue to hold Eliquis Considering patient's risk of thromboembolism, treated with therapeutic Lovenox, last dose given 01/16 in preparation for colonoscopy (2) Status post heart transplant: Continue prednisone and mycophenolate (3) Hypertension: Continue hydralazine 50 mg twice daily and metoprolol 100 mg twice daily (4) Hyperlipidemia: Continue Crestor (5) Elevated troponin: - Chronic, no need to check, patient is well known to me from clinic, this is chronically elevated from heart transplant etiology (6) H/O thyroidectomy: Continue levothyroxine Supervising Physician Co-Signing Physician Notes I personally examined the patient and verified all rosas points of history and exam, discussed case, and agree with decision making with Dr Gutierrez. feeling ok except not happy about the bowel prep. later informed that anesthesia wanted to delay procedure due to elevated trop vitals noted nad breathing unlabored no pallor or icterus GI bleeding -for scope once able (hopefully tomorrow) then surgery later this w point [facility] elevated troponin - almost certainly from longstanding transplant. nothing appearing ACS. will await further cardiology input for anesthesia reassurance, but does not appear to be anything acute at play, and nothing that should preclude her care for her acute issues. Subjective Pleasant this morning despite bowel prep overnight. No other acute issues. Physical Exam Constitutional: WD/WN, vitals as above Eyes: PERRL and EOM intact bilaterally Neck: normal visual inspection and trachea midline Respiratory: normal respiratory effort, lungs clear to auscultation Cardiovascular: Rate/Rhythm: regular rate and regular rhythm Gastrointestinal (Abdomen): Percussion/Palpation: abdomen soft; abdomen nontender and no guarding Musculoskeletal: Head/Neck/Chest: normocephalic and head atraumatic Neurologic: moves all extremities and awake Psychiatric: A+Ox3, euthymic affect Results & Data Vital Signs (Past 12 Hours) Vital Signs Temp Pulse Pulse Pulse Resp BP BP 01/17/19 16:09 82 01/17/19 15:04 36.5 C 86 87 18 146/82 H 01/17/19 11:35 36.5 C 83 18 152/83 H 01/17/19 08:00 100 H 01/17/19 07:28 36.6 C 85 20 144/82 H Pulse Ox 01/17/19 16:09 01/17/19 15:04 96 01/17/19 11:35 97 01/17/19 08:00 01/17/19 07:28 Resident Activity Tracking Resident Involvement: Resident Care Provided Care Provided: Adult Hospital Medicine
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
--- NOTE | 2019-01-17 16:34 | Anesthesiology Progress Note ---
Date of Service January 17, 2019 The procedure was not done today due to an elevated troponin. It appears that this may be a chronic problem and, if so, we will do the case tomorrow. Anesthesia Post Procedure Vital Signs Vital Signs: Temp Pulse Pulse Pulse Resp BP BP 01/17/19 16:09 82 01/17/19 15:04 36.5 C 86 87 18 146/82 H 01/17/19 11:35 36.5 C 83 18 152/83 H 01/17/19 08:00 100 H 01/17/19 07:28 36.6 C 85 20 144/82 H 01/17/19 02:35 82 01/17/19 00:00 36.6 C 86 18 121/73 01/16/19 16:34 76 Pulse Ox 01/17/19 16:09 01/17/19 15:04 96 01/17/19 11:35 97 01/17/19 08:00 01/17/19 07:28 01/17/19 02:35 01/17/19 00:00 96 01/16/19 16:34 Pain Intensity Head: Pain Intensity: 8 Bilateral Leg: Pain Intensity: 8
--- NOTE | 2019-01-17 16:43 | Progress Note ---
DATE: 01/17/2019 The patient was scheduled for colonoscopy today and was found to have some elevated troponins in the past couple days according to Dr. Dean's note from the 6th. She has had chronic elevations in her troponins, but he did not feel further evaluation was necessary. It was felt that a more definitive note was necessary in order to clear her for procedure, which we will defer until tomorrow.
--- NOTE | 2019-01-17 17:31 | Billing Data ---
Coding Level of Care Code 54522 Subseq Hosp Care Lvl 2
[2019-01-17] MEDS: ROSUVASTATIN CALCIUM 5 MG TAB PO SCH (20:44)
[2019-01-17] MEDS ORDERED: OLANZapine 10 MG/2.1 ML SDV IM PRN (23:07)
[2019-01-18] MEDS: LACTATED RINGER'S 1,000 ML IV SCH ×4 (00:48→23:33)
[2019-01-18] MEDS: LEVOTHYROXINE SODIUM 112 MCG TABLET PO SCH ×2 (07:33→07:42)
[2019-01-18] MEDS: FUROSEMIDE 20 MG TAB PO SCH ×2 (07:33→07:43)
[2019-01-18] MEDS: HydrALAZINE TAB 50 MG TAB PO SCH ×3 (07:33→21:24)
[2019-01-18] MEDS: MYCOPHENOLATE SODIUM 180 MG TAB PO SCH ×3 (07:33→21:23)
[2019-01-18] MEDS: predniSONE 5 MG TAB PO SCH ×2 (07:33→07:43)
[2019-01-18] MEDS: FAMOTIDINE 20 MG in SYRINGE 3 ML IV SCH ×2 (07:34→21:35)
[2019-01-18] MEDS: allopurinoL 100 MG TAB PO SCH ×2 (07:34→07:43)
[2019-01-18] MEDS: cycloSPORINE (SANDIMMUNE) 25 MG CAP PO SCH ×3 (07:34→21:23)
[2019-01-18] MEDS: METOPROLOL SUCC 50MG EXT REL TAB PO SCH ×3 (07:34→21:22)
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
--- NOTE | 2019-01-18 09:57 | Cardiology Progress Note ---
Date of Service January 18, 2019 Assessment & Plan (1) Preoperative cardiovascular examination: The patient demonstrates adequate functional status and does not experience cardiac symptoms. The patient is an acceptable cardiac risk for general anesthesia, colonoscopy, and an operative procedure if necessary. (2) Elevated troponin: The patient has a chronically elevated troponin I level. No need for further cardiac evaluation at this time. (3) Status post heart transplant: The patient received her cardiac transplant in March 1999. Has done well on immunosuppressive therapy. (4) Hypertension: Adequate control on current medical regimen. (5) Hyperlipidemia: Would continue rosuvastatin. (6) Blood per rectum: GI workup in progress. Subjective The patient is resting comfortably in bed without complaints of chest pain or dyspnea. However, she seems somewhat confused this morning. Physical Exam Physical Exam: In general this is a well-developed well-nourished white female in no acute distress. HEENT exam is negative. Neck is supple with full carotid upstrokes. There are no carotid bruits. Jugular venous pressure is flat at 90. There is no thyromegaly. Cardiovascular exam reveals a regular rhythm with a normal S1 and fixed split S2. No murmurs. Chest reveals a well-healed midline scar. Lungs are clear without rales, rhonchi, or wheezes. Abdomen is soft and nontender without bruits. Extremities reveal intact radial artery pulses bilaterally. There is trace pretibial edema. Results & Data Vital Signs (Past 12 Hours) Vital Signs Temp Pulse Pulse Resp BP Pulse Ox 01/18/19 08:00 88 01/18/19 07:24 37.1 C 92 H 18 147/80 H 90 01/18/19 00:44 102 H 01/17/19 23:34 36.5 C 96 H 20 161/86 H 95 Diagnostic Findings EKG performed on January 16 noted normal sinus rhythm with left anterior hemiblock and poor R-wave progression across the anterior precordium. There is a nonspecific ST abnormality. hall monitor notes sinus rhythm. PG Care Time/CCT Total # of Minutes Spent Total Time Spent with Patient: Total time spent is greater than 50% in coordination of care (as documented) at patient's floor/unit and/or counseling patient:
--- NOTE | 2019-01-18 15:58 | Progress Note ---
DATE: 01/18/2019 The patient was canceled for colonoscopy yesterday because of changes in her EKG and elevated troponins. She was seen again today by Dr. Dean and felt that she was stable enough to undergo colonoscopy; however, when anesthesia saw her, she was experiencing some hospital delirium and they recommended cancelling the colonoscopy again today. At this point, I would recommend that we forget about trying to sedate the patient for colonoscopy and schedule her for a barium enema while she is still prepped and so she will not have to redo the prep and at least rule out any other mass lesions other than the bleeding polyp in her rectum that we know about.
--- NOTE | 2019-01-18 16:24 | Progress Note ---
DATE: 01/18/2019 ADDENDUM I had a conversation with Dr. Andrade from Radiology and he would prefer to do her barium enema, single contrast tomorrow morning due to the late hour of the day and staff leaving. She can have clear liquids tonight and n.p.o. after midnight and they will do her early tomorrow morning just to rule out any other masses, other than the rectal polyp that we know is present.
--- NOTE | 2019-01-18 16:46 | Billing Data ---
Coding Level of Care Code 83662 Subseq Hosp Care Lvl 2
[2019-01-18] MEDS: ROSUVASTATIN CALCIUM 5 MG TAB PO SCH (21:22)
[2019-01-19] MEDS: ACETAMINOPHEN 325 MG TAB PO PRN ×2 (01:58→15:52)
[2019-01-19] MEDS: LEVOTHYROXINE SODIUM 112 MCG TABLET PO SCH (05:42)
--- NOTE | 2019-01-19 07:20 | Hospitalist Progress Note ---
Date of Service January 19, 2019 Assessment & Plan (1) Blood per rectum: 78 year-old female history of immunosuppression in setting of heart transplant, presumed bleeding rectal polyp presented with bright red blood per rectum. Hemoglobin is been stable. She remains on inpatient service for evaluation by GI, plans for colonoscopy were amended due to acute delirium here in hospital. Had Barium enema today which did not show any other masses; her Delirium is resolving. Tentative plans for discharge home tomorrow. Blood per rectum -Hemoglobin remains stable GI following -Was notified that was not performed as requesting cardiology consult from elevated trop and ECG changes. Patient is well known to me in clinic and has a history of elevated trops. Plan is to have the rectal polyp removed by colorectal surgery by [facility] who she saw in outpatient setting in Nov. I spoke with Dr. Young her Colorectal surgeon with [facility] who she saw as outpatient in November 2018 for this bleeding polyp from follow up with our Residency clinic. He noted that he would be able to see her in Office on 02/11/2018 then could get a surgery scheduled at [facility], which would be same day. This info was relayed to patient. - Will restart Eliquis 2.5mg tonight - Restarted diet. - Discontinued cardiac monitoring (2) Status post heart transplant: Continue prednisone and mycophenolate (3) Hypertension: Continue hydralazine 50 mg twice daily and metoprolol 100 mg twice daily (4) Hyperlipidemia: Continue Crestor (5) Elevated troponin: - Chronic, no need to check, patient is well known to me from clinic, this is chronically elevated from heart transplant etiology (6) H/O thyroidectomy: Continue levothyroxine (7) Delirium: - Resolving, making jokes again, this was reassuring. - Will move her next to the window to continue with reorientation day time/night time. - Also helps that we were able to give her solid food today as diet ordered, previously was NPO for procedure and on clear liquids. Supervising Physician Co-Signing Physician Notes I personally examined the patient and verified all rosas points of history and exa m, discussed case, and agree with decision making with Dr Gutierrez. feeling better but not really up and around much. ate a little. feels like she might be up to go home tomorrow. dr gutierrez d/w dr young - not actually scheduled for anything so set up for 02/11. vitals noted nad breathing unlabored no pallor or icterus GI bleeding -appreciate GI input - barium enema reassuring, no further bleeding. increase diet, increase activity - hopefully home tomorrow. ongoing close f/u, PCP f/u, surgery appt. elevated troponin - almost certainly from longstanding transplant. nothing appearing ACS. otherwise as above Subjective Dahiana had no acute events overnight and was oriented to person and place. She notes being tired. This afternoon, she was doing well from her barium enema. She expressed okay to possibly go home tomorrow as she could get a friend to take her. I spoke with Dr. Young her Colorectal surgeon with [facility] who she saw as outpatient in November 2018 for this bleeding polyp from follow up with our Residency clinic. He noted that he would be able to see her in Office on 02/11/2018 then could get a surgery scheduled at [facility], which would be same day. This info was relayed to patient. Physical Exam Constitutional: WD/WN, vitals as above cooperative and comfortable sleeping, easily arousable Eyes: + anicteric sclerae and EOM intact bilaterally Neck: normal visual inspection and trachea midline Respiratory: normal respiratory effort, lungs clear to auscultation Cardiovascular: Rate/Rhythm: regular rate and regular rhythm Musculoskeletal: Head/Neck/Chest: normocephalic and head atraumatic Skin: no rashes, warm and dry Neurologic: moves all extremities and awake Psychiatric: A+Ox3, euthymic affect Results & Data Vital Signs (Past 12 Hours) Vital Signs Temp Pulse Pulse Resp BP Pulse Ox 01/19/19 04:04 36.8 C 72 20 143/76 H 100 01/19/19 00:00 93 H 01/18/19 23:46 37.5 C 95 H 20 148/77 H 93 01/18/19 21:40 97 H 14 154/87 H Resident Activity Tracking Resident Involvement: Resident Care Provided Care Provided: Adult Hospital Medicine
[2019-01-19] MEDS: LACTATED RINGER'S 1,000 ML IV SCH ×2 (08:04→17:36)
[2019-01-19] MEDS: predniSONE 5 MG TAB PO SCH (08:53)
[2019-01-19] MEDS: MYCOPHENOLATE SODIUM 180 MG TAB PO SCH ×2 (08:53→20:30)
[2019-01-19] MEDS: allopurinoL 100 MG TAB PO SCH (08:53)
[2019-01-19] MEDS: METOPROLOL SUCC 50MG EXT REL TAB PO SCH ×2 (08:53→20:29)
[2019-01-19] MEDS: FUROSEMIDE 20 MG TAB PO SCH (08:53)
[2019-01-19] MEDS: HydrALAZINE TAB 50 MG TAB PO SCH ×2 (08:53→20:29)
[2019-01-19] MEDS: cycloSPORINE (SANDIMMUNE) 25 MG CAP PO SCH ×2 (08:53→20:31)
[2019-01-19] MEDS: FAMOTIDINE 20 MG in SYRINGE 3 ML IV SCH (09:01)
--- NOTE | 2019-01-19 11:38 | Fluoroscopy Report ---
FL barium enema CLINICAL HISTORY: rectal bleeding COMPARISON STUDY: None FLUOROSCOPY TIME: 1.1 minutes. NUMBER OF FLUOROSCOPIC IMAGES: 12 FINDINGS: Study was very difficult for technical standpoint. The patient was unable to hold the enema . Barium introduced per rectum did reach the cecum. There is no reflux the terminal ileum. The append ix was not visualized. There is extensive left colonic diverticulosis. No obstructing lesions are vis ualized. No annular mass lesions were identified. IMPRESSION: 1. Technically limited study 2. No evidence of obstruction 3. No annular mass lesions identified 4. Extensive left colonic diverticulosis Electronically signed by: Andre Andrade M.D. 01/19/2019 11:36 AM
--- NOTE | 2019-01-19 16:40 | Progress Note ---
DATE: 01/19/2019 The patient underwent a single contrast barium enema today to evaluate her colon as we have been not able to perform a colonoscopy due to a seizure risk for sedation. The barium enema was technically difficult, but successful in getting barium into the cecum. There were no mass lesions or apple core lesions. She does have extensive sigmoid diverticulosis, but no other major abnormalities that would prevent her from having her polyp removed transanally at [place]. IMPRESSION: The patient's barium enema was negative for any mass lesions. She did have some diverticulosis. I would recommend that the patient follow up with Dr. Rosenbaum on Thursday in our office to arrange for surgical resection of the anal lesion at [place]. The office will call to schedule her a time for an outpatient appointment later today. The plan is for her to be discharged tomorrow. VIRIDIANA
--- NOTE | 2019-01-19 16:51 | Billing Data ---
Coding Level of Care Code 69253 Subseq Hosp Care Lvl 2
[2019-01-19] MEDS: APIXABAN 2.5 MG TAB PO SCH (20:28)
[2019-01-19] MEDS: ROSUVASTATIN CALCIUM 5 MG TAB PO SCH (20:30)
[2019-01-20] MEDS: LEVOTHYROXINE SODIUM 112 MCG TABLET PO SCH (05:54)
[2019-01-20 06:43] LABS: Hematocrit (blood only) 36.6 % (37-47); Hemoglobin 12.1 g/dL (12.0-16.0); Mean Corpuscular Hemoglobin 32.9 pg (25-34); Mean Corpuscular Hgb Conc 33.1 g/dL (32-36); Mean Corpuscular Volume 99.5 fL (80-100); Mean Platelet Volume 10.1 fL (7.4-10.4); Platelet Count 169 K/uL (130-400); RDW Coefficient of Variation 13.4 % (11.5-14.5); RDW Standard Deviation 48.7 fL (36.4-46.3); Red Blood Count 3.68 M/uL (4.2-5.4); White Blood Count 6.98 K/uL (4.8-10.8)
[2019-01-20 07:06] LABS: BUN Creatinine Ratio 11.9 (10-20); Calcium 8.5 mg/dl (8.5-10.1); Creatinine Clr Calc Pharmacy 37.4 ml/min; Est GFR (African American) 56.1; Est GFR (Non-African American) 48.4; Potassium 2.6 mmol/L (3.5-5.1)
[2019-01-20] MEDS ORDERED: POTASSIUM CHLORIDE PWD 20 MEQ PACK PO ONE (08:00)
[2019-01-20] MEDS ORDERED: POTASSIUM CHLORIDE 20 MEQ TABCR PO ONE ×3 (08:00→12:00)
[2019-01-20] MEDS ORDERED: MAGNESIUM OXIDE 400 MG TAB PO ONE (08:00)
[2019-01-20] MEDS: HydrALAZINE TAB 50 MG TAB PO SCH (08:05)
[2019-01-20] MEDS: APIXABAN 2.5 MG TAB PO SCH (08:05)
[2019-01-20] MEDS: MYCOPHENOLATE SODIUM 180 MG TAB PO SCH (08:06)
[2019-01-20] MEDS: predniSONE 5 MG TAB PO SCH (08:06)
[2019-01-20] MEDS: allopurinoL 100 MG TAB PO SCH (08:06)
[2019-01-20] MEDS: METOPROLOL SUCC 50MG EXT REL TAB PO SCH (08:06)
[2019-01-20] MEDS: cycloSPORINE (SANDIMMUNE) 25 MG CAP PO SCH (08:06)
[2019-01-20] MEDS ORDERED: FAMOTIDINE 20 MG TAB PO SCH (09:00)
--- NOTE | 2019-01-20 10:33 | Discharge Summary ---
Date of Service January 20, 2019 Admission HPI Per Admitting Provider 78 y/o female presented to the ED with bright red blood per rectum on the evening of admission. 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 No abdominal pain, N/V/D, F/C, chest pain, SOB, cough, or lightheadedness. She does report feeling fatigued over the past few days. Primary Care Provider: Jame Gutierrez DO Principal Diagnosis Bleeding Rectal Tubular Adenoma (Rectal Polyp) Discharge Exam Constitutional WD/WN, vitals as above cooperative and comfortable Eyes + anicteric sclerae, PERRL and EOM intact bilaterally Neck normal visual inspection and trachea midline Respiratory normal respiratory effort, lungs clear to auscultation Cardiovascular Rate/Rhythm: regular rate and regular rhythm Gastrointestinal (Abdomen) Percussion/Palpation: abdomen soft; abdomen nontender and no guarding Musculoskeletal Head/Neck/Chest: normocephalic and head atraumatic Skin no rashes, warm and dry Neurologic moves all extremities and awake Psychiatric A+Ox3, euthymic affect Discharge Data Allergies Allergy/AdvReac Type Severity Reaction Status Date / Time amiloride Allergy Unknown Unknown Verified 01/13/19 21:06 Iodinated Contrast Media Allergy Unknown Rash Verified 01/13/19 21:06 Sulfa (Sulfonamide Allergy Unknown Rash Verified 01/13/19 21:06 Antibiotics) morphine AdvReac Mild NAUSEA/VOMITING; Verified 01/13/19 21:06 HALLUCINATIONS amiodarone AdvReac Unknown Vomiting Verified 01/13/19 21:06 amoxicillin AdvReac Unknown Diarrhea Verified 01/13/19 21:06 codeine AdvReac Unknown NAUSEA, Verified 01/13/19 21:06 HALLUCINATIONS Consultations 01/13/19 21:36 ED Decision to Admit Stat 01/13/19 23:30 Consult Gastroenterology Routine 01/17/19 17:24 Consult Cardiology Routine Procedures Performed Operation Date: 01/17/19 16:00 <No data on this case meets the specified criteria> Operation Date: 01/18/19 15:45 <No data on this case meets the specified criteria> Ordered Studies 01/19/19 09:00 FL barium enema Routine 1. Technically limited study, difficulty holding contrast 2. No evidence of obstruction 3. No annular mass lesions identified 4. Extensive left colonic diverticulosis Hospital Course (1) Blood per rectum: 78 year-old female history of immunosuppression in setting of heart transplant, presumed bleeding rectal polyp presented with bright red blood per rectum. Hemoglobin is been stable and WNL on day of discharge 12.1. She was on inpatient service for evaluation by GI, plans for colonoscopy were amended due to anesthesiology requiring cards eval on first attempt then had acute delirium here in hospital which cancelled the second attempt. Had Barium enema 01/19 which did not show any other masses only extensive left colonic diverticulosis; her Delirium had resolved. Did not have significant rectal bleeding during admission. Discharged home with plans for follow up with me in office next week and to see [facility] Dr. Rosenbaum 02/11/19 at [place] office here in [place] for follow up to schedule surgery to remove polyp. Blood per rectum -Hemoglobin remained stable, GI following -Was notified that was not performed as requesting cardiology consult from elevated trop and ECG changes. Patient is well known to me in clinic and has a history of elevated trops. Plan is to have the rectal polyp removed by colorectal surgery by [facility] who she saw in outpatient setting in Nov. I spoke with Dr. Rosenbaum her Colorectal surgeon with [facility] who she saw as outpatient in November 2018 for this bleeding polyp from follow up with our Residency clinic. He noted that he would be able to see her in Office on 02/11/2018 then could get a surgery scheduled at [facility], which would be same day. This info was relayed to patient. - C/w Eliquis 2.5mg BID - Restarted diet. - Discontinued cardiac monitoring (2) Status post heart transplant: Continue prednisone and mycophenolate (3) Hypertension: Continue hydralazine 50 mg twice daily and metoprolol 100 mg twice daily (4) Hyperlipidemia: Continue Crestor (5) Elevated troponin: - Chronic, no need to check, patient is well known to me from clinic, this is chronically elevated from heart transplant etiology (6) H/O thyroidectomy: Continue levothyroxine (7) Delirium: - Resolved, making jokes again, this was reassuring. - Will move her next to the window to continue with reorientation day time/night time. - Also helps that we were able to give her solid food as diet ordered 01/19, previously was NPO for procedure and on clear liquids. (8) Hypokalemia: 2.6 on day of discarged, treated with 60meq PO with breakfast and with Lunch; will follow up with outpatient labs. Held home Lasix today. (9) Hypomagnesemia: 1.3 on day of discharged, gave 400mg this AM, was refusing home meds while was having the delirium so probably got a little behind on her usual home dose. Will repeat labs on oupatient setting. Total Time Total Time Spent Total Time Spent (In Minutes): <30 Total Time Includes: Examination of the Patient, Discharge Planning, Medication Reconciliation and Communication With Other Providers Discharge Plan Discharge Items Patient Disposition: Home - Self-Care Reason For Visit: LOWER GI BLEED Discharge Diagnosis: Bleed from rectal polyp Activity: Resume your previous activity Non-emergency contact: Primary Care Provider Call non-emergency contact if: you have any medication questions and your symptoms worsen Follow-up/Referrals: Jame Gutierrez DO [Resident] - (We will call you for appointment, most likely will be on 01/26, Thursday) Diet: Heart Healthy Addtl Attending Provider Instructions: Call our office if you notice any more bleeding. Make sure to take your potassium medication and Magnesium pills because your levels were low. Make sure to be active to help regain some of the strength you might have lost in the hospital, but do not over do it. Make sure you eat and do not skip any meals. I will have our office call you to schedule an appointment for follow up, it most likely will be 01/26/19. I will recheck your Potassium and Magnesium levels when you come in to see me. You had a barium enema that didn't show any other masses. I talked with Dr. Rosenbaum with [facility] and the plan is to get your scheduled for an appointment with his office in [place] on 02/11/2019. Then they will work on figuring out getting scheduled for removal of the polyp. I will help you get through this so we do not make you worse overall through getting this done. Your blood levels were normal and that's reassuring that you didn't have a lot of dangerous bleeding. It is okay to resume your Eliquis 2.5mg, one pill twice per day. Call me if you need me! . Thank you as always for your prayers!!! Love, Bill Pending Studies at Discharge: No Stand-Alone Forms: [facility] Medications and DC Order Prescriptions: Continued gabapentin 100 mg capsule 100 - 300 mg PO DAILY PRN (Reason: Restless Legs) RF: 0 multivitamin Tablet 1 tab PO QAM RF: 0 furosemide [Lasix] 40 mg Tablet 40 mg PO DAILY PRN (Reason: LEG EDEMA) RF: 0 metoprolol succinate [Toprol XL] 100 mg Tablet Extended Release 24 Hr 100 mg PO BID RF: 0 prednisone 5 mg Tablet 5 mg PO QAM RF: 0 cyclosporine 25 mg Capsule 75 mg PO BID RF: 0 ascorbic acid (vitamin C) [Vitamin C] 500 mg Tablet 500 mg PO QAM RF: 0 calcium carbonate [Tums] 200 mg calcium (500 mg) Tablet,Chewable 500 mg PO QAM RF: 0 hydralazine 50 mg Tablet 50 mg PO BID RF: 0 levothyroxine 112 mcg Tablet 112 mcg PO QAM RF: 0 magnesium oxide 250 mg Tablet 250 mg PO DAILY PRN (Reason: LEG PAIN) RF: 0 rosuvastatin [Crestor] 5 mg Tablet 5 mg PO HS RF: 0 mycophenolate sodium [Myfortic] 180 mg Tablet,Delayed Release (Dr/Ec) 180 mg PO HS RF: 0 mycophenolate sodium [Myfortic] 360 mg Tablet,Delayed Release (Dr/Ec) 360 mg PO QAM RF: 0 potassium chloride 20 mEq Tablet Extended Release 20 meq PO BID RF: 0 allopurinol 100 mg tablet 100 mg PO QAM RF: 0 calcium polycarbophil [Fiber Therapy (ca polycarboph)] 625 mg Tablet 1,250 mg PO DAILY RF: 0 multivitamin with minerals [Hair,Skin and Nails] Tablet 2 tab PO DAILY RF: 0 cholecalciferol (vitamin D3) [Vitamin D3] 1,000 unit Tablet,Chewable 1,000 unit PO QAM RF: 0 Eliquis 2.5 mg tablet 2.5 mg PO BID RF: 0 acetaminophen [Tylenol 8 Hour] 650 mg tablet extended release 650 mg PO Q8H PRN (Reason: fever or pain) Qty: 30 RF: 0 Discharge Orders: Discharge Order (Routine); Ordered 01/20/19 Ordered By: Jame Gutierrez Admission Data Admit Date/Time: 01/15/19 14:43 Attending Provider: Junior Collazo Admit Provider: Seng Wei Primary Care Provider: Gerardo Bermudez Other Providers: Seng Wei ; James Campbell ; Gerardo Bermudez ; Angelo Dean Other Interventions: Discharge Summary Assessment (RN) Last Done: 01/20/19 14:30 DC Date/Time DO NOT enter until pt leaves facility: 01/20/19 16:25 Supervising Physician Co-Signing Physician Notes I personally examined the patient and verified all rosas points of history and exam, discussed case, and agree with decision making with Dr Gutierrez. feeling better overall feels up to going home. vitals noted nad breathing unlabored no pallor or icterus GI bleeding -appreciate GI input - barium enema reassuring, no further bleeding. doing well for home. close PCP f/u. surgical f/u [facility] 02/11. BMP next week (K, mag supplemented prior to discharge) elevated troponin - almost certainly from longstanding transplant. nothing appearing ACS. otherwise as above Resident Activity Tracking Resident Involvement: Resident Care Provided Care Provided: Adult Hospital Medicine
[2019-01-20] MEDS: FUROSEMIDE 20 MG TAB PO SCH (10:42)
[2019-01-20] MEDS ORDERED: POTASSIUM CHLORIDE 20 MEQ TABCR PO SCH (11:30)
--- NOTE | 2019-01-20 17:58 | Billing Data ---
Date of Service January 20, 2019 Coding Level of Care Code D/C Day Management <30 mins
== END 2019-01-20 16:25 | disposition home or self-care (01) | DRG 378 ==
LOC: ED 18:10 → 2N 18:10 → SUATTDRO 22:35 → 2N 23:15 → SUATTDRO 01-15 14:43 → 2N 01-19 16:42